=== PATIENT | female | born 1960 | race African-American/Black ===

== ENCOUNTER 2017-01-08 10:56 | Outpatient (CLI) | payer OTHER ==
[2016-01-24 15:39] VITALS: BMI 34.2
--- NOTE | 2017-01-08 11:37 | DI ---
EXAM: Three views of the left shoulder. History: Left shoulder pain. Findings: No acute fracture or dislocation. Sclerosis and cystic change within the superior lateral aspect of the humeral head. Mild narrowing of the left AC joint and left glenohumeral joint. No ra diopaque foreign bodies. Impression: 1. No acute osseous abnormality. 2. Rotator cuff disease. 3. Mild arthritis.
== END 2017-01-08 10:57 | disposition home or self-care (01) ==
LOC: RAD 10:56
PROVIDERS: ATTEND Internal Medicine
DX: M25.512 Pain in left shoulder (principal)

== ENCOUNTER 2017-01-29 10:36 | Outpatient (CLI) | payer OTHER ==
[2016-01-24 15:39] VITALS: BMI 34.2
--- NOTE | 2017-01-30 12:06 | MAMMO ---
EXAM: Digital screening mammogram with tomosynthesis HISTORY: Screening COMPARISON: 02/21/2015 FINDINGS: Digital MLO and CC views of the right and left breast were performed. Computer-aided det ection was utilized. Tomosynthesis was performed. There are scattered fibroglandular densities. Genna gical clip and bilateral breath. Scattered benign bilateral calcifications. Stable benign bilateral lymph nodes. There is no evidence for mass, asymmetry, distortion, or suspicious calcifications in either breast. IMPRESSION: 1. No evidence of malignancy in the right or left breast. 2. Annual screening mammogram is recommended in one year. BIRADS category 2, benign
== END 2017-01-29 10:37 | disposition home or self-care (01) ==
LOC: RAD 10:36
PROVIDERS: ATTEND Internal Medicine
DX: Z12.31 Encounter for screening mammogram for malignant neoplasm of breast (principal)
CPT/HCPCS: 77067

== ENCOUNTER 2017-03-19 15:30 | Outpatient (RCR) ==
[2016-01-24 15:39] VITALS: BMI 34.2
--- NOTE | 2017-02-22 14:25 | RS.OPPTDN ---
Subjective Date of Note: 02/21/17 Visit #: 6 Date of Evaluation: 02/04/17 Payer Source: MEDICARE Treatment Diagnosis: Closed nondisplaced fx of greater tuberosity of L humerus Current Subjective/complaints:: Patient says reaching is getting better and work tasks are getting easier, but is still the most difficult motion at work. She says she has to lift her arm over head ~5 times per day. She says her pain remains moderate today. Pain Assessment - Pain Description Pain Location: L shld Current Pain Intensity: moderate, just came from work - Heat/Cryotherapy Treatment: Cryotherapy (15 mins to L shoulder after therex in supine) Interventions - Exercise/Activities/Manual Therapy Exercises/Activities: Pt received PROM L shoulder for flexion/abd, short range IR/ER. elbow flex/ext/sup/pron. Continued with manual isometrics for the shoulder flex/ext/IR/ER 2 x 5. Manual isometrics for biceps/triceps 2x5. 2 1/2 # wand for bilateral shoulder flexion and forward press ups 2 x 10. 1# wrist flex/ext, elbow sup/pron, biceps/triceps and punches x 10. 5 and 7# digiflexors x 10 each. Scap retraction with red tband x 10 at EOB. Total minutes of Exercise: 32 Manual Therapy: n/a HOME EXERCISE PROGRAM: pt given written HEP with finger walking as well as pendulum ex. - Charges Total Direct Minutes: 32 Total Treatment Time: 47 Procedures billed for this date of service:: cp, ex2 Assessment: Patient tolerating increased shoulder flexion to ~165 degrees AAROM. Pain remains moderate, but demo improved strength with isometrics and control with eccentric bilateral shoulder wand exercises. Patient Education: Body/Joint mechanics, Home Exercise Program Patient demonstrates compliance with HEP?: Yes Short Term Goals Goal #1: pt with improved L shld flex AROM 100 abd 90. Goal to be met by: 02/18/17 Progress towards Goal:: Met Goal #2: pt report pain < 5/10 with activity L shld Goal to be met by: 02/18/17 Progress towards Goal:: Met Goal #3: pt able to perform grooming tasks independently with less difficulty Goal to be met by: 02/18/17 Progress towards Goal:: Progressing Prison Goals Goal #1: pt independent with HEP to allow to maintain functional gains. Goal to be met by: 02/25/17 Progress towards goal: Progressing Goal #2: pt report pain < 3/10 with activity Goal to be met by: 02/25/17 Progress towards goal: Progressing Goal #3: pt rate self >50/80 on UE functional index Goal to be met by: 02/25/17 Goal #4: pt demonstrate improved LUE shld flex 110 abd 100 AROM Goal to be met by: 02/25/17 Plan PLAN OF CARE EXPIRES ON:: 02/25/17 ORDER # VISITS AND/OR THROUGH DATE: 02/25/17 2x3 weeks PLAN: Progress Exercises Comments:: Patient could benefit from possibly continuing 2x3 more weeks to assist her with strength at work.
--- NOTE | 2017-02-28 11:01 | RS.OPPTDN ---
Subjective Date of Note: 02/27/17 Visit #: 7 Date of Evaluation: 02/04/17 Payer Source: MEDICARE Treatment Diagnosis: Closed nondisplaced fx of greater tuberosity of L humerus Current Subjective/complaints:: Patient c/o increased pain today. She denies feeling it is related to work duties this week. She says she continued to use ice at home and HEP. She is taking Tramadol for pain, which does help at work and in PT. Pain Assessment - Pain Description Pain Location: L shld Current Pain Intensity: moderate, just came from work - Heat/Cryotherapy Treatment: Cryotherapy (15 mins to L shoulder after therex in sitting) Interventions - Exercise/Activities/Manual Therapy Exercises/Activities: Pt received PROM L shoulder for flexion/abd, IR/ER. elbow flex/ext/sup/pron. Continued with manual isometrics for the shoulder flex/ext/ IR/ER 2 x 10. Manual isometrics for biceps/triceps 2x5. Green tband for shoulder pull downs and bilateral ER and L shoulder IR x 10. Increased to 3# wand for bilateral shoulder flexion and forward press ups 2 x 10. Increased to 2# interlocking machine operator ball for punches, wrist flex/ext, elbow sup/pron, x 10. 5 and 7# digiflexors x 10 each. Scap retraction progressed to green tband x 10 at EOB. Ball on the wall for clock and counter clockwise x 10. Total minutes of Exercise: 35 Manual Therapy: n/a HOME EXERCISE PROGRAM: pt given written HEP with finger walking as well as pendulum ex. - Charges Total Direct Minutes: 35 Total Treatment Time: 50 Procedures billed for this date of service:: cp, ex2 Assessment: Patient very compliant with HEP/ice. She is able to ekaterina Active flexion to 175 today with wand in sitting, abd to WFL. She remains with discomfort in all ranges, but particularly with IR/ER isometrics. Cryotherapy alleviates pain substantially after therex. Patient Education: Home Exercise Program Patient demonstrates compliance with HEP?: Yes Short Term Goals Goal #1: pt with improved L shld flex AROM 100 abd 90. Goal to be met by: 02/18/17 Progress towards Goal:: Met Goal #2: pt report pain < 5/10 with activity L shld Goal to be met by: 02/18/17 Progress towards Goal:: Met Goal #3: pt able to perform grooming tasks independently with less difficulty Goal to be met by: 02/18/17 Progress towards Goal:: Progressing Customer Service Agent Goals Goal #1: pt independent with HEP to allow to maintain functional gains. Goal to be met by: 03/18/17 Progress towards goal: Progressing Goal #2: pt report pain < 3/10 with activity Goal to be met by: 03/18/17 Progress towards goal: Progressing Goal #3: pt rate self >50/80 on UE functional index Goal to be met by: 03/18/17 Progress towards goal: Progressing Goal #4: pt demonstrate improved LUE shld flex 110 abd 100 AROM Goal to be met by: 03/18/17 Progress towards goal: Met Plan PLAN OF CARE EXPIRES ON:: 03/18/17 ORDER # VISITS AND/OR THROUGH DATE: 03/18/17 NEW CONTINUATION 2x3 weeks PLAN: We received continuation 2x3 weeks dated 02/21/17. Patient continues this week for therex to improve ROM and increase strength for ADLs and job duties. She has 2 more weeks remaining.
--- NOTE | 2017-03-04 08:48 | RS.OPPTDN ---
Subjective Date of Note: 03/01/17 Visit #: 8 Date of Evaluation: 02/04/17 Payer Source: MEDICARE Treatment Diagnosis: Closed nondisplaced fx of greater tuberosity of L humerus Current Subjective/complaints:: Patient says she has not had to do much at work today. 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 She admits she has more mobility this week when compared to last week. Pain Assessment - Pain Description Pain Location: L shld Current Pain Intensity: low, increases with end range of motion - Heat/Cryotherapy Treatment: Cryotherapy (20 mins to the L shoulder in sitting at end of session) Interventions - Exercise/Activities/Manual Therapy Exercises/Activities: Gloria begins with pulleys x 3 mins for shoulder flexion. Supine for PROM/gentle stretching of L shoulder for flexion/abd, IR/ ER. elbow flex/ext/sup/pron. Continued with manual isometrics for the shoulder flex/ext/IR/ER 2 x 10. 2# machine silk screen printer ball for biceps/triceps and punches 2x10. Green tband for shoulder pull downs and bilateral ER and L shoulder IR x 10. Continued with 3# wand for bilateral shoulder flexion and forward press ups 2 x 10. Scap retraction progressed to green tband x 10 at EOB. Ball on the wall for clock and counter clockwise x 10. Total minutes of Exercise: 35 Manual Therapy: n/a HOME EXERCISE PROGRAM: pt given written HEP with finger walking as well as pendulum ex. - Objective Findings Observations,measurements,etc.: Active shoulder flexion to - Charges Total Direct Minutes: 35 Total Treatment Time: 35 Procedures billed for this date of service:: cp, ex2 Assessment: Patient continues with new continuation order progressing L shoulder flexion to WFL all directions. She is able to ekaterina increased strengthening exercises and overhead activity with more control and less pain. She has had less work load at her job allowing her shoulder to avoid heavier tasks and improve with PT further. Patient Education: Body/Joint mechanics, Home Exercise Program, Activity Modification Patient demonstrates compliance with HEP?: Yes Short Term Goals Goal #1: pt with improved L shld flex AROM 100 abd 90. Goal to be met by: 02/18/17 Progress towards Goal:: Met Goal #2: pt report pain < 5/10 with activity L shld Goal to be met by: 02/18/17 Progress towards Goal:: Met Goal #3: pt able to perform grooming tasks independently with less difficulty Goal to be met by: 02/18/17 Progress towards Goal:: Progressing Client Account Assistant Goals Goal #1: pt independent with HEP to allow to maintain functional gains. Goal to be met by: 03/18/17 Progress towards goal: Progressing Goal #2: pt report pain < 3/10 with activity Goal to be met by: 03/18/17 Progress towards goal: Progressing Goal #3: pt rate self >50/80 on UE functional index Goal to be met by: 03/18/17 Progress towards goal: Progressing Comments: Assess next week Goal #4: pt demonstrate improved LUE shld flex 110 abd 100 AROM Goal to be met by: 03/18/17 Progress towards goal: Met Plan PLAN OF CARE EXPIRES ON:: 03/18/17 ORDER # VISITS AND/OR THROUGH DATE: 03/18/17 NEW CONTINUATION 2x3 weeks PLAN: Progress therex to improve ROM and strength to the L UE per continuation order.
--- NOTE | 2017-03-05 09:59 | RS.OPPTDN ---
Subjective Date of Note: 03/05/17 Visit #: 9 Date of Evaluation: 02/04/17 Payer Source: MEDICARE Treatment Diagnosis: Closed nondisplaced fx of greater tuberosity of L humerus Current Subjective/complaints:: Patient describes stiffness this morning in the L shoulder. She says it does seem to hurt more in the A.M. (Patient usually attends afternoons after her shift). Pain Assessment - Pain Description Pain Location: L shld Current Pain Intensity: low, increases with end range of motion - Heat/Cryotherapy Treatment: Hot Pack (15 mins to the L shoulder in supine) Interventions - Exercise/Activities/Manual Therapy Exercises/Activities: Supine for PROM/gentle stretching of L shoulder for flexion/abd, IR/ER. Continued with manual isometrics for the shoulder flex/ext/ IR/ER 2 x 10. 2# dynamometer tuner ball for biceps/triceps and punches 2x10. Green tband for shoulder pull downs and bilateral ER and L shoulder IR x 10. Continued with 3# wand for bilateral shoulder flexion and forward press ups 2 x 10. Scap retraction green tband x 10 at EOB. Ended with UBE forward and retro x 4 mins. Total minutes of Exercise: 33 Manual Therapy: n/a HOME EXERCISE PROGRAM: pt given written HEP with finger walking as well as pendulum ex. - Charges Total Direct Minutes: 33 Total Treatment Time: 48 Procedures billed for this date of service:: hp, ex2 Assessment: Patient initially with stiffness and mild guarding with PROM, after heat applied, she had improved flexibility and less pain. She demo high pain ekaterina with progressed exercises and is able to demo all ROM WFL now. Difficulty with resisted shoulder ext and eccentric contraction during 2# punches or L single arm press (supine). Patient experienced relief of L shoulder pain with UBE, but did c/o R shoulder beginning to have discomfort. Patient Education: Body/Joint mechanics, Home Exercise Program Patient demonstrates compliance with HEP?: Yes Short Term Goals Goal #1: pt with improved L shld flex AROM 100 abd 90. Goal to be met by: 02/18/17 Progress towards Goal:: Met Goal #2: pt report pain < 5/10 with activity L shld Goal to be met by: 02/18/17 Progress towards Goal:: Met Goal #3: pt able to perform grooming tasks independently with less difficulty Goal to be met by: 02/18/17 Progress towards Goal:: Progressing Hot Plate Plywood Press Feeder Goals Goal #1: pt independent with HEP to allow to maintain functional gains. Goal to be met by: 03/18/17 Progress towards goal: Progressing Goal #2: pt report pain < 3/10 with activity Goal to be met by: 03/18/17 Progress towards goal: Progressing Goal #3: pt rate self >50/80 on UE functional index Goal to be met by: 03/18/17 Progress towards goal: Progressing Goal #4: pt demonstrate improved LUE shld flex 110 abd 100 AROM Goal to be met by: 03/18/17 Progress towards goal: Met Plan PLAN OF CARE EXPIRES ON:: 03/18/17 ORDER # VISITS AND/OR THROUGH DATE: 03/18/17 NEW CONTINUATION 2x3 weeks PLAN: Progress PROM/AROM x 2 more weeks per continuation to improve flexibility and advance strengthening to L UE.
--- NOTE | 2017-03-08 09:02 | RS.OPPTDN ---
Subjective Date of Note: 03/07/17 Visit #: 10 Date of Evaluation: 02/04/17 Payer Source: MEDICARE Treatment Diagnosis: Closed nondisplaced fx of greater tuberosity of L humerus Current Subjective/complaints:: Patient says she is tired from work and has to [employer] tonight. She says her arm is sore, but not as bad as last session. - Heat/Cryotherapy Treatment: Hot Pack (over the L shoulder in supine x 15 mins), Cryotherapy ( cold pack after therex in sitting at EOB x 15) Interventions - Exercise/Activities/Manual Therapy Exercises/Activities: Supine for PROM/gentle stretching of L shoulder for flexion/abd, IR/ER. Continued with manual isometrics for the shoulder flex/ext/ IR/ER 2 x 10. 2# bariatric nurse ball for biceps/triceps and punches 2x10. Green tband for shoulder pull downs and bilateral ER and L shoulder IR x 10. Continued with 3# wand for bilateral shoulder flexion and forward press ups 2 x 10. Sitting: bilateral shoulder flexion 3# x 10. Scap retraction green tband x 10 at EOB. Ended with UBE forward and retro x 4 mins. Added shelf reaching with 2# ball x 10 reps from trunk to overhead. Total minutes of Exercise: 35 Manual Therapy: n/a HOME EXERCISE PROGRAM: pt given written HEP with finger walking as well as pendulum ex. - Charges Total Direct Minutes: 35 Total Treatment Time: 65 Procedures billed for this date of service:: hp, ex2 Assessment: Progressed overhead reaching with resistance and repetitive activity with only discomfort to the L shoulder. Improved flexibility and muscle guarding with moist heat today. Patient Education: Body/Joint mechanics, Home Exercise Program, Education of Plan of Care Patient demonstrates compliance with HEP?: Yes Short Term Goals Goal #1: pt with improved L shld flex AROM 100 abd 90. Goal to be met by: 02/18/17 Progress towards Goal:: Met Goal #2: pt report pain < 5/10 with activity L shld Goal to be met by: 02/18/17 Progress towards Goal:: Met Goal #3: pt able to perform grooming tasks independently with less difficulty Goal to be met by: 02/18/17 Progress towards Goal:: Progressing Processing Assistant Goals Goal #1: pt independent with HEP to allow to maintain functional gains. Goal to be met by: 03/18/17 Progress towards goal: Progressing Goal #2: pt report pain < 3/10 with activity Goal to be met by: 03/18/17 Progress towards goal: Progressing Goal #3: pt rate self >50/80 on UE functional index Goal to be met by: 03/18/17 Progress towards goal: Progressing Goal #4: pt demonstrate improved LUE shld flex 110 abd 100 AROM Goal to be met by: 03/18/17 Progress towards goal: Met Plan PLAN OF CARE EXPIRES ON:: 03/18/17 ORDER # VISITS AND/OR THROUGH DATE: 03/18/17 NEW CONTINUATION 2x3 weeks PLAN: Progress exercises x 1 more week to increase ROM and build strength for overhead reaching.
--- NOTE | 2017-03-12 09:11 | RS.OPPTDN ---
Subjective Date of Note: 03/11/17 Visit #: 11 Date of Evaluation: 02/04/17 Payer Source: MEDICARE Treatment Diagnosis: Closed nondisplaced fx of greater tuberosity of L humerus Current Subjective/complaints:: Patient says she had a follow up with her MD yesterday and received an injection. She reports less pain as a result and feels she is continuing to improve with motion. She says she has been working on HEP and eager to increase her exercise. Reports she just had a heating pad on her shoulder at home just before leaving for therapy. - Heat/Cryotherapy Treatment: Hot Pack (15 mins to the L shoulder in supine.) Interventions - Exercise/Activities/Manual Therapy Exercises/Activities: Supine for PROM/gentle stretching of L shoulder for flexion/abd, IR/ER. Continued with manual isometrics for the shoulder flex/ext/ IR/ER 2 x 10. 2# diet therapist ball for biceps/triceps and punches 2x10. Green tband for shoulder pull downs and bilateral ER and L shoulder IR and punches x 10. Continued with 3# wand for bilateral shoulder flexion and forward press ups 2 x 10. Sitting: bilateral shoulder flexion 3# x 10. Scap retraction and bilateral shoulder ER green tband 2 x 10 at EOB. Ended with UBE forward and retro x 4 mins. Shelf reaching with 2# ball x 10 reps from trunk to overhead. Total minutes of Exercise: 35 Manual Therapy: n/a HOME EXERCISE PROGRAM: pt given written HEP with finger walking as well as pendulum ex. - Charges Total Direct Minutes: 35 Total Treatment Time: 50 Procedures billed for this date of service:: cp, ex2 Assessment: Patient admits good report from MD follow up and received an injection. She maintains low level L shoulder pain today with increased shoulder flexion passively to 170 degrees and no muscle guarding. Active shoulder flexion to 165 today. Actively able to achieve 75% IR/ER. Patient Education: Home Exercise Program, Education of Plan of Care Patient demonstrates compliance with HEP?: Yes Short Term Goals Goal #1: pt with improved L shld flex AROM 100 abd 90. Goal to be met by: 02/18/17 Progress towards Goal:: Met Goal #2: pt report pain < 5/10 with activity L shld Goal to be met by: 02/18/17 Progress towards Goal:: Met Goal #3: pt able to perform grooming tasks independently with less difficulty Goal to be met by: 02/18/17 Progress towards Goal:: Met [employer] Goals Goal #1: pt independent with HEP to allow to maintain functional gains. Goal to be met by: 03/18/17 Progress towards goal: Progressing Goal #2: pt report pain < 3/10 with activity Goal to be met by: 03/18/17 Progress towards goal: Progressing Goal #3: pt rate self >50/80 on UE functional index Goal to be met by: 03/18/17 Progress towards goal: Progressing Goal #4: pt demonstrate improved LUE shld flex 110 abd 100 AROM Goal to be met by: 03/18/17 Progress towards goal: Met Plan PLAN OF CARE EXPIRES ON:: 03/18/17 ORDER # VISITS AND/OR THROUGH DATE: 03/18/17 NEW CONTINUATION 2x3 weeks PLAN: Patient has a continuation order from her MD as of yesterday and will bring it in at her next appt.
--- NOTE | 2017-03-19 15:27 | RS.PTSUM ---
Progress Note/Summary Date of Note: 03/07/17 Date of Evaluation: 02/04/17 Number of Visits: 10 Reporting Period for this Progress Note: 02/04/17-03/07/17 Current Complaints/Gains: pt reports increased tolerance with reaching activities and above head. Objective Measurements/Presentation: pt demonstrates AROM L shld flex 165 PROM L shld 170, abd and IR/ER WNL. G Codes: carrying and moving current CJ. carrying and moving goal CI Source of G Code Score: UE functional scale which has improved to 32/80 or 60% as well as observing current functional abilities. - Short Term Goals Goal #1: pt with improved L shld flex AROM 100 abd 90. Goal to be met by: 02/18/17 Progress towards Goal:: Met Goal #2: pt report pain < 5/10 with activity L shld Goal to be met by: 02/18/17 Progress towards Goal:: Met Goal #3: pt able to perform grooming tasks independently with less difficulty Goal to be met by: 02/18/17 Progress towards Goal:: Met - Gas Engine Operator Compressors Goals Goal #1: pt independent with HEP to allow to maintain functional gains. Goal to be met by: 04/05/17 Progress towards goal: Progressing Goal #2: pt report pain < 3/10 with activity Goal to be met by: 04/05/17 Progress towards goal: Progressing Goal #3: pt rate self >50/80 on UE functional index Goal to be met by: 04/05/17 Progress towards goal: Progressing Goal #4: pt demonstrate improved LUE shld flex 110 abd 100 AROM Goal to be met by: 04/05/17 Progress towards goal: Met - Assessment Assessment of Improvement/Progress: pt has made significant progress with ROM as well as strength and functional abilities. Summary: Patient has made progress towards goals. - Plan Plan: Continue Plan of Care Comments: 2 w 3 Frequency: 2 X week Duration: 3 weeks PLAN OF CARE EXPIRES ON:: 04/05/17 ORDER # VISITS AND/OR THROUGH DATE: 03/18/17 NEW CONTINUATION 2x3 weeks
--- NOTE | 2017-03-19 16:42 | RS.OPPTDN ---
Subjective Date of Note: 03/19/17 Visit #: 13 Date of Evaluation: 02/04/17 Payer Source: MEDICARE Treatment Diagnosis: Closed nondisplaced fx of greater tuberosity of L humerus Current Subjective/complaints:: Patient says her shoulder has been doing really well. Reports she notices "everything at work is getting easier." She is not specific with any particular task that remains difficult for her at home or at work, but remarks she is pleased with her progress so far. She continues to work on her HEP and reports using heat to the shoulder just before coming to PT today. Interventions - Exercise/Activities/Manual Therapy Exercises/Activities: Continued with PROM stretching of L shoulder for flexion/ abd, IR/ER. Continued with manual isometrics for the shoulder flex/ext/IR/ER 2 x 10. Increased to 3# dumbell for biceps/triceps and punches and wrist flex/ ext 2x10. Green tband for shoulder pull downs and bilateral ER and L shoulder IR and punches x 15 and added bilateral horizontal abd with green tband x 10. Continued with 3# wand for bilateral shoulder flexion and forward press ups 2 x 15. Sitting: bilateral shoulder flexion 3# x 10. Scap retraction and bilateral shoulder ER green tband 2 x 15 at EOB. Ended with "ball on the wall" counter and clockwise x 10. Shelf reaching with 3# wand x 10 reps from trunk to overhead. No further exercise added as patient needed to leave early with company at her home. Total minutes of Exercise: 35 Manual Therapy: n/a HOME EXERCISE PROGRAM: pt given written HEP with finger walking as well as pendulum ex. - Charges Total Direct Minutes: 35 Total Treatment Time: 35 Procedures billed for this date of service:: ex2 Assessment: Patient improving with ekaterina to stretching into all dir and active motion particularly overhead and ER now @ 80 degrees and ABD to 165 degrees actively. Progressing with strengthening and general pain level remains low. Patient Education: Home Exercise Program Patient demonstrates compliance with HEP?: Yes Short Term Goals Goal #1: pt with improved L shld flex AROM 100 abd 90. Goal to be met by: 02/18/17 Progress towards Goal:: Met Goal #2: pt report pain < 5/10 with activity L shld Goal to be met by: 02/18/17 Progress towards Goal:: Met Goal #3: pt able to perform grooming tasks independently with less difficulty Goal to be met by: 02/18/17 Progress towards Goal:: Met Half-Way Goals Goal #1: pt independent with HEP to allow to maintain functional gains. Goal to be met by: 04/05/17 Progress towards goal: Progressing Goal #2: pt report pain < 3/10 with activity Goal to be met by: 04/05/17 Progress towards goal: Progressing Goal #3: pt rate self >50/80 on UE functional index Goal to be met by: 04/05/17 Progress towards goal: Progressing Goal #4: pt demonstrate improved LUE shld flex 110 abd 100 AROM Goal to be met by: 04/05/17 Progress towards goal: Met Plan PLAN OF CARE EXPIRES ON:: 04/05/17 ORDER # VISITS AND/OR THROUGH DATE: 04/05/17 NEW CONTINUATION 2x3 weeks PLAN: Progress therex to meet LTG
--- NOTE | 2017-03-21 16:35 | RS.OPPTDN ---
Subjective Date of Note: 03/21/17 Visit #: 14 Date of Evaluation: 02/04/17 Payer Source: MEDICARE Treatment Diagnosis: Closed nondisplaced fx of greater tuberosity of L humerus Current Subjective/complaints:: Patient says her arm is getting stronger and feels she is improving greatly. She says her pain level is low and intermittent. - Heat/Cryotherapy Treatment: Cryotherapy (15 mins to the L shoulder in sitting after therex) Interventions - Exercise/Activities/Manual Therapy Exercises/Activities: Continued with PROM stretching of L shoulder for flexion/ abd, IR/ER. Continued with manual isometrics for the shoulder flex/ext/IR/ER 2 x 10. Increased to 4# dumbell for biceps/triceps and punches and wrist flex/ ext 2x10. Green tband for shoulder pull downs and bilateral ER and L shoulder IR and punches x 15 and added bilateral horizontal abd with green tband x 10. Increased to 4# wand for bilateral shoulder flexion and forward press ups 2 x 15. Sitting: bilateral shoulder flexion 3# x 10. Scap retraction and bilateral shoulder ER green tband 2 x 15 at EOB. Shelf reaching with 3# wand x 10 reps from trunk to overhead. Ended with wall slides for flexion and abd. UBE unavailable. Total minutes of Exercise: 35 Manual Therapy: n/a HOME EXERCISE PROGRAM: pt given written HEP with finger walking as well as pendulum ex. - Charges Total Direct Minutes: 35 Total Treatment Time: 50 Procedures billed for this date of service:: cp, ex2 Assessment: Patient continues to improve with progressive strengthening and ROM actively to near WNL all directions. Patient Education: Body/Joint mechanics, Home Exercise Program Patient demonstrates compliance with HEP?: Yes Short Term Goals Goal #1: pt with improved L shld flex AROM 100 abd 90. Goal to be met by: 02/18/17 Progress towards Goal:: Met Goal #2: pt report pain < 5/10 with activity L shld Goal to be met by: 02/18/17 Progress towards Goal:: Met Goal #3: pt able to perform grooming tasks independently with less difficulty Goal to be met by: 02/18/17 Progress towards Goal:: Met [facility] Goals Goal #1: pt independent with HEP to allow to maintain functional gains. Goal to be met by: 04/05/17 Progress towards goal: Met Goal #2: pt report pain < 3/10 with activity Goal to be met by: 04/05/17 Progress towards goal: Progressing Goal #3: pt rate self >50/80 on UE functional index Goal to be met by: 04/05/17 Progress towards goal: Progressing Goal #4: pt demonstrate improved LUE shld flex 110 abd 100 AROM Goal to be met by: 04/05/17 Progress towards goal: Met Plan PLAN OF CARE EXPIRES ON:: 04/05/17 ORDER # VISITS AND/OR THROUGH DATE: 04/05/17 NEW CONTINUATION 2x3 weeks PLAN: Continue for progressive strengthening and to further improve ER and ABD actively to WNL.
== END 2017-03-21 ==
PROVIDERS: ATTEND Physician Assistant
DX: M75.82 Other shoulder lesions, left shoulder (principal)

== ENCOUNTER 2017-04-02 11:00 | Outpatient (RCR) ==
[2016-01-24 15:39] VITALS: BMI 34.2
--- NOTE | 2017-03-27 08:54 | RS.OPPTDN ---
Subjective Date of Note: 03/26/17 Visit #: 15 Date of Evaluation: 02/04/17 Payer Source: MEDICARE Treatment Diagnosis: Closed nondisplaced fx of greater tuberosity of L humerus Current Subjective/complaints:: Patient says she is late because of her ride. She admits low pain level and improved mobility/strength. She says she does not have much difficulty with performing work tasks. Interventions - Exercise/Activities/Manual Therapy Exercises/Activities: Patient arrives 30 mins late. No modalities. Continued with stretching of L shoulder for flexion/abd, IR/ER. 4# dumbell for biceps/ triceps and punches and wrist flex/ext 2x10. Green tband for shoulder pull downs and bilateral ER and L shoulder IR and punches x 15 and bilateral horizontal abd with green tband x 10. 4# wand for bilateral shoulder flexion and forward press ups 2 x 15. Sitting: bilateral shoulder flexion 4# x 10. Scap retraction increased to blue tband 2 x 15 at EOB. Blue tband bilateral pull downs 2x10. Green tband for standing shoulder flexion, abd, ext x 15. Total minutes of Exercise: 32 Manual Therapy: n/a HOME EXERCISE PROGRAM: pt given written HEP with finger walking as well as pendulum ex. - Charges Timed Code Treatment Minutes: 32 Total Treatment Time: 32 Procedures billed for this date of service:: ex2 Assessment: Patient demo improved overhead strength and progressive activity regarding shoulder rotation. She is maintaining low pain level with work activities and while in the department. Patient Education: Home Exercise Program Patient demonstrates compliance with HEP?: Yes Short Term Goals Goal #1: pt with improved L shld flex AROM 100 abd 90. Goal to be met by: 02/18/17 Progress towards Goal:: Met Goal #2: pt report pain < 5/10 with activity L shld Goal to be met by: 02/18/17 Progress towards Goal:: Met Goal #3: pt able to perform grooming tasks independently with less difficulty Goal to be met by: 02/18/17 Progress towards Goal:: Met [facility] Home Goals Goal #1: pt independent with HEP to allow to maintain functional gains. Goal to be met by: 04/05/17 Progress towards goal: Met Goal #2: pt report pain < 3/10 with activity Goal to be met by: 04/05/17 Progress towards goal: Progressing Goal #3: pt rate self >50/80 on UE functional index Goal to be met by: 04/05/17 Progress towards goal: Progressing Goal #4: pt demonstrate improved LUE shld flex 110 abd 100 AROM Goal to be met by: 04/05/17 Progress towards goal: Met Plan PLAN OF CARE EXPIRES ON:: 04/05/17 ORDER # VISITS AND/OR THROUGH DATE: 04/05/17 NEW CONTINUATION 2x3 weeks PLAN: Continue x 1 more session per continuation and regarding progress with goals.
--- NOTE | 2017-03-28 16:39 | RS.OPPTDN ---
Subjective Date of Note: 03/28/17 Visit #: 16 Date of Evaluation: 02/04/17 Payer Source: MEDICARE Treatment Diagnosis: Closed nondisplaced fx of greater tuberosity of L humerus Current Subjective/complaints:: Patient says she is able to resume all necessary duties at work now. She reports she is much stronger and pleased with her lowered pain level. - Heat/Cryotherapy Treatment: Cryotherapy (15 mins to the L shoulder sitting EOB after therex) Interventions - Exercise/Activities/Manual Therapy Exercises/Activities: No modalities. Continued with stretching of L shoulder for flexion/abd, IR/ER all to WNL. 4# dumbell for biceps/triceps and punches and wrist flex/ext 2x10. Increased to blue tband for shoulder pull downs and bilateral ER and L shoulder IR and punches x 15 and bilateral horizontal abd with blue tband x 10. 4# wand for bilateral shoulder flexion and forward press ups 2 x 15. Sitting: bilateral shoulder flexion 4# x 10. Scap retraction increased to blue tband 2 x 15 at EOB. Standing: blue tband for shoulder ext, flexion x 10 reps. Total minutes of Exercise: 35 Manual Therapy: n/a HOME EXERCISE PROGRAM: pt given written HEP with finger walking as well as pendulum ex. - Charges Timed Code Treatment Minutes: 35 Total Treatment Time: 50 Procedures billed for this date of service:: cp, ex2 Patient Education: Home Exercise Program Patient demonstrates compliance with HEP?: Yes Short Term Goals Goal #1: pt with improved L shld flex AROM 100 abd 90. 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 Goal to be met by: 04/05/17 Progress towards goal: Met Goal #2: pt report pain < 3/10 with activity Goal to be met by: 04/05/17 Progress towards goal: Progressing Goal #3: pt rate self >50/80 on UE functional index Goal to be met by: 04/05/17 Progress towards goal: Progressing Goal #4: pt demonstrate improved LUE shld flex 110 abd 100 AROM Goal to be met by: 04/05/17 Progress towards goal: Met Plan PLAN OF CARE EXPIRES ON:: 04/05/17 ORDER # VISITS AND/OR THROUGH DATE: 04/05/17 NEW CONTINUATION 2x3 weeks PLAN: Continue x 1 more session for reassessment, Gcodes, and address LTG/ advance HEP.
--- NOTE | 2017-04-02 11:43 | RS.QUICKDC ---
Discharge from PT Date of Discharge: 04/02/17 Number of Visits: 16 Reason for Discharge: Patient has improved with pain, function, and strength to the L UE. She demo increased hook and eye attacher strength of her involved UE which now compares to the dominant hand. L UE measures 5/5 grossly. Increased UE Functional Index from initially 13/80 or 84% to now 64/80 or 20% impairment. No c/o with any work duties or avoidance now at her job. Patient received green and blue tbands for HEP and patient expresses high satisfaction with her progress.
== END 2017-04-21 ==
PROVIDERS: ATTEND Physician Assistant
DX: M75.82 Other shoulder lesions, left shoulder (principal)

== ENCOUNTER 2017-04-23 11:09 | Outpatient (CLI) ==
[2016-01-24 15:39] VITALS: BMI 34.2
--- NOTE | 2017-04-23 15:12 | MRI ---
EXAM: MRI left shoulder without contrast. HISTORY: Fall 3 months ago. Diagnosed incomplete rotator cuff tear. No left shoulder surgery repor kim.. TECHNIQUE: Using a local coil on a high field strength magnet multiplanar multisequence magnet reson ance imaging performed of the left shoulder without intravenous or intra-articular gadolinium contras t. . COMPARISON: Three -view plain film examination left shoulder 01/08/2017. FINDINGS: A Type I acromion. Coracoacromial ligament/arch intact with some thickening. There is ad ditionally left acromioclavicular joint degenerative arthrosis/osteoarthrosis. Prominent subacromial enthesopathy/keel spurring. Deltoid musculature normal signal intensity. Trace fluid subacromial/s ubdeltoid bursa. Muscle bulk of the rotator cuff shows fatty infiltration without acute muscle strain. Marked suprasp inatus tendinosis over the insertion and critical zone. Marked underlying remodeling along the great er tuberosity with some bone marrow edema and degenerative cyst formation . Some insertional fissuri ng/low grade partial thickness rim rent tearing. 5 mm area of partial thickness more bursal sided in trasubstance tearing. No full-thickness rotator cuff tear identified. Posterior intact infraspinatu s and teres minor tendon fibers. Anterior intact subscapularis tendon fibers. The long head of the biceps tendon shows intact fibers with tendinosis and partial thickness tearing. The left humeral head seated. Mild/moderate left glenohumeral joint osteoarthrosis. Trace left sindy ohumeral joint effusion. Overall left glenoid labrum poorly characterized on this non-arthrographic e xamination.. 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 Marked supraspinatus tendinosis. Underlying remodeling along the greater tuberosity with bone marrow edema and degenerative cyst formation. Some insertional fissuring/low grade partial thickness rim re nt tearing. 5 mm area of partial thickness more bursal sided intrasubstance tearing as well. No ful l-thickness rotator cuff tear identified. Trace fluid subacromial/subdeltoid bursa may reflect an ov erlying degree bursitis and/or be sequelae of prior shoulder injection. Correlate clinically. Mild/moderate left glenohumeral joint osteoarthrosis. Trace left glenohumeral joint effusion.
== END 2017-04-23 11:10 | disposition home or self-care (01) ==
LOC: RAD 11:09
PROVIDERS: ATTEND Physician Assistant
DX: M75.02 Adhesive capsulitis of left shoulder (principal); M75.112 Incomplete rotator cuff tear or rupture of left shoulder, not specified as traumatic; M75.82 Other shoulder lesions, left shoulder

== ENCOUNTER 2017-08-09 08:23 | Outpatient (CLI) ==
[2016-01-24 15:39] VITALS: BMI 34.2
== END 2017-08-09 08:24 | disposition short-term general hospital (02) ==
LOC: AMBL 08:23
PROVIDERS: ATTEND Internal Medicine
DX: R47.81 Slurred speech (principal); R26.89 Other abnormalities of gait and mobility; R40.2411 Glasgow coma scale score 13-15, in the field [EMT or ambulance]

== ENCOUNTER 2018-02-05 11:06 | Outpatient (CLI) ==
[2016-01-24 15:39] VITALS: BMI 34.2
--- NOTE | 2018-02-07 10:26 | MAMMO ---
EXAM: Digital screening mammogram with tomosynthesis HISTORY: Screening COMPARISON: 01/29/2017 FINDINGS: Digital MLO and CC views of the right and left breast were performed. Tomosynthesis was p erformed. Computer aided detection utilized. There are scattered fibroglandular densities. Surgical clip in the left breast. Bilateral benign calcifications. Bilateral benign lymph nodes. There is no evidence for mass, asymmetry, distortion, or suspicious calcifications in either breast. IMPRESSION: 1. No evidence of malignancy in the right or left breast. 2. Annual screening mammogram is recommended in one year. BIRADS category 2, benign
== END 2018-02-05 11:07 | disposition home or self-care (01) ==
LOC: RAD 11:06
PROVIDERS: ATTEND Internal Medicine
DX: Z12.31 Encounter for screening mammogram for malignant neoplasm of breast (principal)
CPT/HCPCS: 77067

== ENCOUNTER 2018-07-04 06:35 | Outpatient (CLI) ==
[2016-01-24 15:39] VITALS: BMI 34.2
--- NOTE | 2018-07-04 08:56 | ECHO2D ---
Date of Exam: 07/04/18 Ordering Physician: DR. KEELEY DURON Room #: OP Reason for Echo: SOB, HTN, PRE SURG CLEARANCE M-Mode Normal Adult Results LV Dimensions Normal Adult Results AoV Opening excursions >1.6 >1.6 LVEDD-base- 3.5-5.8 4.0 Ao root dimensions 2.0-3.7 2.8 LVESD-base- 3.1-4.6 L. Atrium dimensions 1.9-3.8 3.7 Post. Wall thickness 0.8-1.1 0.8 IV septum (thickness) 0.7-1.2 1.0 Post. Wall excursion 0.72-1.3 NORMAL Septal motion NORMAL Systolic motion R. Ventricular cavity 1.5-2.0 NORMAL LVEF 60% 55% Paradoxical septal wall motion NORMAL 2-D : 2-D M Mode Echocardiogram was performed using apical four chamber and left parasternal long and short axis views. Mitral, tricuspid and aortic valves appear to be normal. Contractility of the left ventricle seems to be normal, so is the cavity size. Left atrial cavity size and aortic root appear to be normal. There is no pericardial effusion. There is no thrombus noted in the left ventricular or left aortic cavity. No mitral valve prolapse noted. M-MODE: MV: NORMAL AV: NORMAL TV: NORMAL PV: CHAMBER SIZE: NORMAL WALL MOTION: NORMAL PERICARDIUM: NORMAL INTERPRETATION: 1. NORMAL 2 "D" "M" MODE ECHO MTDD
--- NOTE | 2018-07-04 09:24 | US ---
EXAM: Bilateral carotid artery Doppler History: Dizziness and stroke. Comparison: Carotid Doppler 01/24/2016 Technique: Multiple sonographic images through the bilateral internal carotid arteries were obtained . Color duplex Doppler was used to interrogate vascular flow. Findings: The right ICA peak systolic velocity is within normal limits measuring 85 cm/sec. The right ICA/cca PSV ratio is normal at 1.4. The right vertebral artery is patent and demonstrates antegrade flow. G ray scale images demonstrate mild plaque buildup within the right internal carotid artery. The left ICA peak systolic velocities within normal limits measuring 90 cm/sec. The left ICA/cca PSV ratio is normal at 1.3. Left vertebral artery is patent and demonstrates antegrade flow. Calderon scal e images demonstrate mild plaque buildup within the left internal carotid artery Impression: No significant hemodynamic stenosis of the bilateral internal carotid arteries
--- NOTE | 2018-07-07 11:14 | STRESSECHO ---
Date of Test: 07/04/18 Ordering Physician: DR. KEELEY DURON Occupation: UNEMPLOYED Reason for Exam: SOB, HTN, PRE SURG CLEARANCE Smoking History: NONE Height: 63" Weight: 200 LBS Current Medications: FLEXERIL, NOVOLIN, ASA, ULTRAM, CELEXA, CRESTOR, LISINOPRIL Resting EKG: SINUS RHYTHM/ NO ACUTE CHANGES Target Heart Rate: 139/164 S-T SEGMENT STAGE MPH/GRADE HEART RATE BPM BLOOD PRESSURE MMHG RHYTHM +/- ELEVATION DEPRESSION SYMPTOMS AT REST 75 BPM 138/78 MMHG SR X NONE 1 1.7/10% 132 BPM 160/72 MMHG SR X NONE 2 2.5/12% 3 3.4/14% 4 4.2/16% 5 5.0/18% Immediately After 150 BPM SR X SHORT OF AIR Minutes Post Exercise 5:00 80 BPM 158/88 MMHG SR X NONE Minutes Post Exercise DURATION OF EXERCISE: 3:25 MAXIMUM HEART RATE REACHED: 150 MMHG REASON FOR TERMINATION: SHORT OF BREATH 94% OXYGEN SATURATION WITH EXERCISE ON ROOM AIR METS 5.7 INTERPRETATION: 1. NO EVIDENCE OF ISCHEMIA BY ST-T WAVE 2. NO CHEST PAIN OR DISCOMFORT 3. NO ARRHYTHMIA 4. BLOOD PRESSURE RESPONSE: NORMAL NORMAL LEFT VENTRICULAR CONTRACTILITY--RESTING AND POST EXERCISE MTDD
--- NOTE | 2018-07-07 11:16 | ECHOSTRESS ---
Date of Exam: 07/04/18 Ordering Physician: DR. KEELEY DURON Reason for Echo: SOB, HTN, PRE SURG CLEARANCE, STRESS TEST --NO ISCHEMIA M-Mode Normal Adult Results LV Dimensions Normal Adult Results AoV Opening excursions >1.6 LVEDD-base- 3.5-5.8 Ao root dimensions 2.0-3.7 LVESD-base- 3.1-4.6 L. Atrium dimensions 1.9-3.8 Post. Wall thickness 0.8-1.1 IV septum (thickness) 0.7-1.2 Post. Wall excursion 0.72-1.3 Septal motion Systolic motion R. Ventricular cavity 1.5-2.0 LVEF 60% Paradoxical septal wall motion 2-D: NORMAL LEFT VENTRICULAR CONTRACTILITY--RESTING AND POST EXERCISE M-MODE: MV: AV: TV: PV: CHAMBER SIZE: WALL MOTION: NORMAL LEFT VENTRICULAR CONTRACTILITY--RESTING AND POST EXERCISE PERICARDIUM: INTERPRETATION: 1. NORMAL LEFT VENTRICULAR CONTRACTILITY--RESTING AND POST EXERCISE MTDD
== END 2018-07-04 06:36 | disposition home or self-care (01) ==
LOC: CAR 06:35
PROVIDERS: ATTEND Internal Medicine
DX: R06.02 Shortness of breath (principal); R42 Dizziness and giddiness; I10 Essential (primary) hypertension; E11.9 Type 2 diabetes mellitus without complications; Z01.810 Encounter for preprocedural cardiovascular examination; Z86.73 Personal history of transient ischemic attack (TIA), and cerebral infarction without residual deficits
CPT/HCPCS: 93005; 93010

== ENCOUNTER 2022-09-13 16:36 | Observation (INO) ==
--- NOTE | 2022-09-13 17:16 | ED.PDOC ---
General ED Provider: Dr. WARNER RUIZ MD Chief Complaint: Hypoglycemia Stated Complaint: my blood sugar was low Time Seen by Provider: 09/13/22 16:59 Information Source: Patient and EMT Primary Care Provider: KEELEY DURON MD Nursing and Triage Documentation Reviewed and Agree: Yes Does patient meet sepsis criteria?: No System Inflammatory Response Syndrome: Not Applicable Sepsis Protocol: For patient's 13 years and over: Temp is 96.8 and below OR 101 and greater Pulse >90 BPM Resp >20/minute Acutely Altered Mental Status Are patient's symptoms suggestive of a new infection, such as: -Pneumonia -Skin, Soft Tissue -Endocarditis -UTI -Bone, Joint Infection -Implantable Device -Acute Abdominal Infection -Wound Infection -Meningitis -Blood Stream Catheter Infection -Unknown Review of Systems Review Of Systems Constitutional: Reports No symptoms Neurological: Reports Other (loss of consciousness ) All Other Systems: Reviewed and Negative [facility] Medical History (Updated 09/13/22 @ 23:06 by UMM WESLEY RN) Anemia D64.9 - Anemia, unspecified (ICD-10) Diabetes E11.9 - Type 2 diabetes mellitus without complications (ICD-10) HTN (hypertension) I10 - Essential (primary) hypertension (ICD-10) Family History (Updated 09/13/22 @ 23:06 by UMM WESLEY RN) Other No known health problems Social History Smoking and tobacco status: Never smoker Alcohol intake: never Substance use type: does not use Special estevan needs: No Agree to transfusion: Yes Adopted: No Caregiver/support person: No Foster care: No Household members: family Housing: house Lives independently: Yes Number of children: 2 service: No long-term: No History of recent travel: No Do you think of yourself as: straight/heterosexual Current gender identity: female Seatbelt use: always Drives intoxicated or rides with intoxicated local hazmat driver: No Water heater temperature set < 120 degrees: Yes Working smoke detector in home: Yes Fire extinguisher in home: Yes Carbon monoxide detector in home: Yes Female Reproductive History Menstrual Hx Hysterectomy: No Hx Tubal Ligation: Yes Physical Exam Physical Exam Appearance: Reports Well-appearing Ill-appearing: None Pain Distress: None Eyes: Reports SADIE and EOMI ENT: Reports Ears normal and Nose normal Neck: Supple Respiratory: Reports Airway patent, Breath sounds clear and Breath sounds equal Cardiovascular: Reports RRR, Pulses normal and No murmur GI/: Reports Soft and Nontender Musculoskeletal: Reports Normal strength, ROM intact and No edema Skin: Reports Warm and Normal color Neurological: Reports Sensation intact and Motor intact Psychiatric: Reports Affect appropriate Critical Care Note Critical Care Note Total Critical Care Time (mins): 0 Course Course 09/14/22 04:40 09/14/22 04:40 Orders, Labs, Meds: Lab Review 09/13/22 17:50 WBC 9.59 RBC 4.45 Hgb 12.2 Hct 38.6 MCV 86.7 MCH 27.4 MCHC 31.6 L RDW Coeff of Mai 14.4 Plt Count 403 Immature Gran % (Auto) 0.2 Neut % (Auto) 86.8 H Lymph % (Auto) 7.8 L [place] % (Auto) 4.3 Eos % (Auto) 0.7 Baso % (Auto) 0.2 Neut # (Auto) 8.3 H Lymph # (Auto) 0.8 [place] # (Auto) 0.4 Eos # (Auto) 0.1 Baso # (Auto) 0.0 Immature Gran # (Auto) 0.0 Sodium 139.8 Potassium 3.96 Chloride 109.3 H Carbon Dioxide 23.2 Anion Gap 11.26 BUN 14.8 Creatinine 0.76 Estimated GFR (MDRD) 94.00 BUN/Creatinine Ratio 19.47 Glucose 78.9 Calcium 9.24 Total Bilirubin 0.49 AST 26.2 ALT 13.5 Alkaline Phosphatase 107.4 Total Protein 7.96 Albumin 4.16 Globulin 3.80 Albumin/Globulin Ratio 1.09 Orders Category Date Time Status PLACE PATIENT OBSERVATION .TO MEDSURG (MONITORED BED ADMISSION 09/13/22 21:22 Active ) ACTIVITY .Early Mobilization for VTE Prevention CARE 09/13/22 21:26 Active BLOOD GLUCOSE MONITORING (MED/SURG) Q2HR CARE 09/13/22 21:22 Active GIVE HS SNACK 2100 CARE 09/13/22 21:23 Active INTAKE & OUTPUT Q8HR CARE 09/13/22 21:27 Active TELEMETRY MONITORING TELE CARE 09/13/22 21:26 Active VITAL SIGNS Q4HR CARE 09/13/22 21:27 Active VTE PREVENTION .SCD On AM/Off PM CARE 09/13/22 21:26 Active ADA 1800 ROXANNE. DIET DIETARY 09/14/22 Breakfast Ordered HS SNACK DIETARY 09/13/22 Dinner Ordered Blood Sugar [ED ACCUCHECK ASSESSMENT] .ONCE EMERGENCY 09/13/22 17:08 Active CBC W/ AUTO DIFF Stat LAB 09/13/22 17:50 Completed CMP [COMPREHENSIVE METABOLIC PANEL] Stat LAB 09/13/22 17:50 Completed HEMOGLOBIN A1C Routine LAB 09/14/22 04:40 Completed Acetaminophen [Tylenol] Meds 09/13/22 21:22 Active 650 mg PO Q4H PRN Dextrose 5 % and 0.9 % NaCl [Dextrose 5%-Ns IV Solution Meds 09/13/22 21:22 Discontinued ] 1,000 ml IV 125 mls/hr Dextrose 50 % in Water [Dextrose 50%-Water Abboject] Meds 09/13/22 18:45 Discontinued 50 ml IVP ONCE ONE Ondansetron HCl/Pf [Zofran 4 mg/2 ml] Meds 09/13/22 21:22 Active 4 mg IVP Q8H PRN Medications Generic Name Dose Route Start Last Admin Trade Name Freq PRN Reason Stop Dose Admin Acetaminophen 650 mg 09/13/22 21:22 Acetaminophen 325 Mg Tablet PO Q4H PRN Mild Pain Ondansetron HCl 4 mg 09/13/22 21:22 Ondansetron Hcl/Pf 4 Mg/2 Ml Sdv IVP Q8H PRN Nausea / Vomiting Discontinued Medications Generic Name Dose Route Start Last Admin Trade Name Freq PRN Reason Stop Dose Admin Dextrose 50 ml 09/13/22 18:45 09/13/22 18:54 Dextrose 50 % In Water 50 Ml Disp.Syrin IVP 09/13/22 18:46 50 ml ONCE ONE Administration Dextrose/Sodium Chloride 1,000 mls @ 125 mls/hr 09/13/22 21:22 09/13/22 22:47 Dextrose 5%-Ns Iv Solution IV 09/14/22 05:21 125 mls/hr .Q8H STA Administration Vital Signs: Temp Pulse Resp BP Pulse Ox 09/13/22 20:55 98 18 154/98 H 99 09/13/22 16:39 98.2 F 92 20 163/100 H 97 62 years old male with past medical history of diabetes type 2, anemia, depression, dyslipidemia came to the ER from home for hypoglycemia. Patient was found on the side of the bed by the paramedics unconscious blood sugar was 39 on the scene to receive 1 amp of D50 blood sugar came up to 180. Patient did not eat breakfast this morning when she took her insulin. She says she was planning to eat but does not know what happened. patient received anothe D50 in ER. blood sugar 79 then 89. Patient ate a cheese burger and fries and drank some juice repeated blood sugar is 69. Patient will be admitted under observation for blood sugar monitoring.Spoke with Nate LIZ and she agreed with admission for obser vation under her services. Discharge Plan Discharge Patient Disposition: ADMITTED INPATIENT Discharge Problem: Hypoglycemia Did you review [place] SPRAY WORKER for ALL controlled substances?: Not Applicable ED Provider: WARNER RUIZ Condition: Good Physician Progress Note: []
[2022-09-13 18:01] LABS: BASOPHILS % (AUTO) 0.2 % (0.0-3.0); EOSINOPHILS # (AUTO) 0.1 K/ul (0.0-0.7); EOSINOPHILS % (AUTO) 0.7 % (0.0-7.0); HEMATOCRIT 38.6 % (37.0-47.0); HEMOGLOBIN 12.2 g/dl (12.0-16.0); IMMATURE GRANULOCYTE % (AUTO) 0.2 % (0.0-5.0); LYMPHOCYTES # (AUTO) 0.8 K/uL (0.60-3.4); LYMPHOCYTES % (AUTO) 7.8 (10.0-50.0); MEAN CORPUSCULAR HEMOGLOBIN 27.4 pg (27.0-31.0); MEAN CORPUSCULAR HGB CONC 31.6 (31.8-35.4); MEAN CORPUSCULAR VOLUME 86.7 fl (81.0-99.0); MONOCYTES # (AUTO) 0.4 K/uL (0.4-2.0); MONOCYTES % (AUTO) 4.3 (0-10); NEUTROPHILS # (AUTO) 8.3 K/ul (2.0-6.9); NEUTROPHILS % (AUTO) 86.8 % (42.2-75.2); PLATELET COUNT 403 10^3/uL (140-440); RDW COEFFICIENT OF VARIATION 14.4 % (11.6-14.8); RED BLOOD COUNT 4.45 10^6/ul (4.20-5.40); WHITE BLOOD COUNT 9.59 K/ul (4.6-10.2)
[2022-09-13 18:07] LABS: ALANINE AMINOTRANSFERASE 13.5 U/L (0-35); ALBUMIN 4.16 g/dL (3.5-5.0); ALKALINE PHOSPHATASE 107.4 U/L (53-141); ASPARTATE AMINO TRANSFERASE 26.2 U/L (14-36); BILIRUBIN,TOTAL 0.49 mg/dL (0.2-1.3); BLOOD UREA NITROGEN 14.8 mg/dL (7-17); CALCIUM 9.24 mg/dL (8.4-10.2); CARBON DIOXIDE 23.2 mmol/L (22-30.0); CHLORIDE 109.3 mmol/L (98-107); CREATININE 0.76 mg/dL (0.60-1.30); GLUCOSE 78.9 mg/dL (74-106); POTASSIUM 3.96 mmol/L (3.5-5.1); SODIUM 139.8 mmol/L (134.5-145); TOTAL PROTEIN 7.96 g/dL (6.3-8.2)
[2022-09-13] MEDS ORDERED: DEXTROSE 50%-WATER ABBOJECT IVP ONE (18:45)
[2022-09-13] MEDS ORDERED: TYLENOL PO PRN (21:22)
[2022-09-13] MEDS ORDERED: DEXTROSE 5%-NS IV SOLUTION 1,000 ML IV STA (21:22)
[2022-09-13] MEDS ORDERED: ZOFRAN 4 MG/2 ML IVP PRN (21:22)
[2022-09-13 22:54] VITALS: BMI 39.4
[2022-09-14 05:00] LABS: BASOPHILS % (AUTO) 0.4 % (0.0-3.0); EOSINOPHILS # (AUTO) 0.2 K/ul (0.0-0.7); EOSINOPHILS % (AUTO) 2.1 % (0.0-7.0); HEMATOCRIT 36.1 % (37.0-47.0); HEMOGLOBIN 11.4 g/dl (12.0-16.0); IMMATURE GRANULOCYTE % (AUTO) 0.4 % (0.0-5.0); LYMPHOCYTES # (AUTO) 1.5 K/uL (0.60-3.4); LYMPHOCYTES % (AUTO) 17.7 (10.0-50.0); MEAN CORPUSCULAR HGB CONC 31.6 (31.8-35.4); MEAN CORPUSCULAR VOLUME 88.7 fl (81.0-99.0); MONOCYTES # (AUTO) 0.6 K/uL (0.4-2.0); MONOCYTES % (AUTO) 7.5 (0-10); NEUTROPHILS # (AUTO) 5.9 K/ul (2.0-6.9); NEUTROPHILS % (AUTO) 71.9 % (42.2-75.2); PLATELET COUNT 401 10^3/uL (140-440); RDW COEFFICIENT OF VARIATION 14.6 % (11.6-14.8); RED BLOOD COUNT 4.07 10^6/ul (4.20-5.40); WHITE BLOOD COUNT 8.23 K/ul (4.6-10.2)
[2022-09-14 05:11] LABS: ALANINE AMINOTRANSFERASE 13.4 U/L (0-35); ALBUMIN 3.73 g/dL (3.5-5.0); ALKALINE PHOSPHATASE 92.7 U/L (53-141); ASPARTATE AMINO TRANSFERASE 23.6 U/L (14-36); BILIRUBIN,TOTAL 0.25 mg/dL (0.2-1.3); BLOOD UREA NITROGEN 11.8 mg/dL (7-17); CALCIUM 8.62 mg/dL (8.4-10.2); CARBON DIOXIDE 24.5 mmol/L (22-30.0); CREATININE 0.83 mg/dL (0.60-1.30); GLUCOSE 118.5 mg/dL (74-106); POTASSIUM 3.74 mmol/L (3.5-5.1); SODIUM 140.7 mmol/L (134.5-145); TOTAL PROTEIN 7.47 g/dL (6.3-8.2)
[2022-09-14 10:04] VITALS: BP 129/82; RESP 16; TEMP 98.1
--- NOTE | 2022-09-14 10:47 | PCM.SS ---
Provider Provider: HORTENSIA DIAL, [facility] Admission Date Admission Date: 09/13/22 Discharge Date Discharge Date: 09/14/22 Primary Care Physician Primary Care Physician: KEELEY DURON MD Chief Complaint Reason For Visit: Hypoglycemia History of Present Illness History of Present Illness: Admitted 09/13/22 21:35, this 62 year old AA/BLACK/F presented to the ER after caregiver called ambulance due to patient being unresponsive. Patient's blood glucose was found to be in the 30s. In the ER she was given dextrose and blood sugar mildly improved. She was then given a meal and blood sugar continued to drop. Patient has a history of type 2 diabetes and takes 70/30 twice a day. Patient states that she does not like to check her blood sugar so she will dose herself with insulin without knowing what her level is. States she does not remember giving herself insulin yesterday. Also reports that she spoke with her PCP about prescribing her a Dexcom and she does not know when she is supposed to get it. She denies any complaints at this time. Denies any fever, chills, nausea, vomiting, diarrhea, chest pain, or shortness of breath. [facility] Medical History (Updated 09/14/22 @ 10:36 by HORTENSIA DIAL) Anemia D64.9 - Anemia, unspecified (ICD-10) Chronic kidney disease (CKD) stage G3a/A1, moderately decreased glomerular filtration rate (GFR) between 45-59 mL/min/1.73 square meter and albuminuria creatinine ratio less than 30 mg/g N18.31 - Chronic kidney disease, stage 3a (ICD-10) COPD (chronic obstructive pulmonary disease) J44.9 - Chronic obstructive pulmonary disease, unspecified (ICD-10) CVA (cerebral vascular accident) I63.9 - Cerebral infarction, unspecified (ICD-10) Diabetes E11.9 - Type 2 diabetes mellitus without complications (ICD-10) Dyslipidemia E78.5 - Hyperlipidemia, unspecified (ICD-10) HTN (hypertension) I10 - Essential (primary) hypertension (ICD-10) Surgical History (Updated 09/14/22 @ 10:36 by HORTENSIA DIAL) 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-10) S/P cholecystectomy Z90.49 - Acquired absence of other specified parts of digestive tract (ICD- 10) Family History Other No known health problems Social History Smoking and tobacco status: Never smoker Alcohol intake: never Substance use type: does not use Special estevan needs: No Agree to transfusion: Yes Adopted: No Caregiver/support person: No Foster care: No Household members: family Housing: house Lives independently: Yes Number of children: 2 service: No correction: No History of recent travel: No Do you think of yourself as: straight/heterosexual Current gender identity: female Seatbelt use: always Drives intoxicated or rides with intoxicated buggy driver: No Water heater temperature set < 120 degrees: Yes Working smoke detector in home: Yes Fire extinguisher in home: Yes Carbon monoxide detector in home: Yes Medications Mecications: Medications at Discharge (Home Meds & RX) cyclobenzaprine 10 mg tablet 1 tab PO DAILY PRN Muscle spasms in back 01/24/16 rosuvastatin 40 mg tablet (Crestor) 40 mg PO QAM 01/24/16 ferrous sulfate 325 mg (65 mg iron) tablet 325 mg PO BID #60 tabs 06/26/22 citalopram 40 mg tablet (Celexa) 40 mg PO QAM 08/17/22 fluticasone fur. 100 mcg-umeclid 62.5 mcg-vilant 25 mcg inhalat.powder (Trelegy Ellipta) 1 inh inhalation QDAY 08/17/22 gabapentin 300 mg capsule 300 mg PO .BEDTIME 08/17/22 insulin human U-100 NPH-regulr 70-30 mix 100 unit/mL subcutaneous susp (Humulin 70/30 U-100 Insulin) 35 unit subcut BIDAC 08/17/22 semaglutide 1 mg/dose (4 mg/3 mL) subcutaneous pen injector (Ozempic) 1 mg (0.75 mL) subcut QWEEK #3 mL 08/17/22 blood-glucose meter,continuous (Dexcom G6 Machine Heel Seat Fitter) #1 ea 09/10/22 blood-glucose sensor (Dexcom G7 Sensor device) #1 ea 09/10/22 Allergies Allergies Allergy/AdvReac Type Severity Reaction Status Date / Time Penicillins Allergy Intermediate Rash Verified 08/17/22 09:41 Review of Systems Constitutional: Reports No symptoms Head: Reports Normocephalic Eyes: Reports No symptoms Ears: Reports No symptoms Nose: Reports No symptoms Mouth: Reports No symptoms Throat: Reports No symptoms Cardiovascular: Reports No symptoms Respiratory: Reports No symptoms Gastrointestinal: Reports No symptoms Genitourinary: Reports No Symptoms Musculoskeletal: Reports No symptoms Endocrine: Reports No symptoms Hematology: Reports No symptoms Immunology: Reports No symptoms Neurological: Reports Weakness Psychiatric: Reports No symptoms Physical Examination Appearance: Positive Well-appearing, Well-nourished, No Apparent Distress, Alert and Oriented x3 and Obese Head: Positive Normocephalic Eyes: Positive SADIE ENT: Positive Nares Normal and Oropharynx Normal Neck: Positive Supple, Non-Tender, No Masses, No Lynphadenopathy and Trachea Midline Heart: Positive RRR and No Murmurs Respiratory: Positive Airway patent, Breath Sounds Clear, Bilaterally, Breath Sounds Equal and Respirations Nonlabored GI/: Positive Soft, Nontender, Bowel sounds normal, No Distention, No masses and No Organomegaly Extremities: Positive Pedal Pulses Palpable Bilaterally Neurological: Positive Cranial nerves intact, Normal Gait, Recent Memory Intact, Remote Memory Intact, Sensation Intact, Motor Intact, Reflexes Intact, Alert and Oriented Psychiatric: Positive Normal Judgement, Normal Insight, Affect Appropriate and Mood Appropriate Vital Signs (Last 4 Hours) Vital Signs Last 4 Hours: Vital Signs: Last 4 Hours 09/14/22 07:00 09/14/22 08:00 09/14/22 10:00 Temperature 98.1 F Temperature Source Oral Pulse Rate 95 Respiratory Rate 18 16 Blood Pressure 129/82 Blood Pressure Mean 97 Blood Pressure Location Left Arm Blood Pressure Position Supine O2 Sat by Pulse Oximetry 99 Oxygen Delivery Method Room Air Room Air Telemetry Type Remote Telemetry Telemetry Monitoring Continues Telemetry Heart Rate 106 H EKG MD Interval 0.12 EKG QRS Interval 0.09 Telemetry Strip Reading SINUS TACH Labs This Visit Labs This Visit: Labs This Visit 09/13/22 09/14/22 17:50 04:40 WBC 9.59 8.23 RBC 4.45 4.07 L Hgb 12.2 11.4 L Hct 38.6 36.1 L MCV 86.7 88.7 MCH 27.4 28.0 MCHC 31.6 L 31.6 L RDW Coeff of Mai 14.4 14.6 Plt Count 403 401 Immature Gran % (Auto) 0.2 0.4 Neut % (Auto) 86.8 H 71.9 Lymph % (Auto) 7.8 L 17.7 [place] % (Auto) 4.3 7.5 Eos % (Auto) 0.7 2.1 Baso % (Auto) 0.2 0.4 Neut # (Auto) 8.3 H 5.9 Lymph # (Auto) 0.8 1.5 [place] # (Auto) 0.4 0.6 Eos # (Auto) 0.1 0.2 Baso # (Auto) 0.0 0.0 Immature Gran # (Auto) 0.0 0.0 Sodium 139.8 140.7 Potassium 3.96 3.74 Chloride 109.3 H 110.0 H Carbon Dioxide 23.2 24.5 Anion Gap 11.26 9.94 BUN 14.8 11.8 Creatinine 0.76 0.83 Estimated GFR (MDRD) 94.00 85.00 BUN/Creatinine Ratio 19.47 14.21 Glucose 78.9 118.5 H Hemoglobin A1c 7.17 H Calcium 9.24 8.62 Total Bilirubin 0.49 0.25 AST 26.2 23.6 ALT 13.5 13.4 Alkaline Phosphatase 107.4 92.7 Total Protein 7.96 7.47 Albumin 4.16 3.73 Globulin 3.80 3.74 Albumin/Globulin Ratio 1.09 0.99 Review Review Statement: I have independently reviewed and interpreted the labs/EKGs/imaging that were ordered by the ER provider. I have reviewed all outside records that are available currently in our EMR including imaging/notes/labs from previous visits. Plan Reccomendations/Plan: 1. Hypoglycemia - accuchecks Q2H, received D5NS throughout the night, ADA diet, holding insulin at this time, decreasing NPH dosing to 30 units in am and 20 units in pm, reaching out to pharmacy to see if dexcom is there for patient to pickup 2. Hypertension - chronic, stable, continue home medications 3. Hyperlipidemia - chronic, continue home medications 4. CKD - stable, monitor Review With Patient Reviewed with Patient and Family: Patient and family have been counseled on condition and care plan and have no immediate questions. I have personally discussed and reviewed the patient's visit/current labs/imaging/decision making with Dr. Grecia Duron, my supervising attending. Total number of minutes spent with patient 85 min. More than 50% of the time spent with this patient was devoted to counseling and coordination of care. Time of Admission:09/13/22 21:35 Time of Discharge: 09/14/22 1320 Discharge Plan Discharge Discharge Orders: Discharge Patient (ONCE); Ordered 09/14/22 Ordered By: PABLO MEHTA Activity Restrictions/Additional Instructions: Check your blood sugar prior to taking your insulin. If you do not eat, do not take your insulin. If you feel dizzy, shaking and sweating check your blood sugar immediately if below 70 eat or drink something such as orange juice or peanut butter. Follow-up with PCP next week. Decrease insulin dose to 30 units in am and 20 units in pm YOU HAVE A FOLLOW UP APPOINTMENT WITH DR. DURON'S OFFICE ON SaturdaySeptember AT 1:20. SHOULD YOU HAVE ANY QUESTIONS OR NEED TO RESCHEDULE, YOU CAN CONTACT THEIR OFFICE AT [phone]. Instructions: Hypoglycemia in a Person with Diabetes (DC) Patient Disposition: HOME SELF-CARE Prescriptions: Continued ferrous sulfate 325 mg (65 mg iron) tablet 325 mg PO BID Qty: 60 2RF (DME) Dexcom G7 Sensor Device See Rx Instructions .ROUTE Qty: 1 5RF Rx Instructions: As directed (DME) Dexcom G7 Machine Heel Seat Fitter Misc See Rx Instructions .ROUTE Qty: 1 0RF Rx Instructions: As directed cyclobenzaprine 10 MG tablet 1 tab PO DAILY PRN (Reason: Muscle spasms in back) rosuvastatin [Crestor] 40 MG tablet 40 mg PO QAM Humulin 70/30 U-100 Insulin 100 unit/mL (70-30) suspension 35 unit subcut BIDAC Rx Instructions: inject 35 units under the skin every morning and 25 units under the skin every evening citalopram [Celexa] 40 mg tablet 40 mg PO QAM gabapentin 300 mg capsule 300 mg PO .BEDTIME Trelegy Ellipta 100-62.5-25 mcg blister with device 1 inh inhalation QDAY Ozempic 1 mg/dose (4 mg/3 mL) pen injector 1 mg subcut QWEEK Qty: 3 2RF Did you review [place] CRITICAL CARE UNIT MANAGER for ALL controlled substances?: No Discussed opioids are addictive and Narcan is available by prescription or from pharmacy.: No Condition: Good
== END 2022-09-14 14:10 | disposition home or self-care (01) ==
LOC: MEDSURG B 16:36 → ED 16:36 → MEDSURG B 22:41
PROVIDERS: ADMIT Nurse Practitioner Family; ATTEND Nurse Practitioner Family
DX: I12.9 Hypertensive chronic kidney disease with stage 1 through stage 4 chronic kidney disease, or unspecified chronic kidney disease; E16.2 Hypoglycemia, unspecified; F32.A Depression, unspecified; Z79.84 Long term (current) use of oral hypoglycemic drugs; E11.649 Type 2 diabetes mellitus with hypoglycemia without coma; D64.9 Anemia, unspecified; N18.9 Chronic kidney disease, unspecified; Z90.49 Acquired absence of other specified parts of digestive tract; Z79.899 Other long term (current) drug therapy; E78.5 Hyperlipidemia, unspecified; Z51.81 Encounter for therapeutic drug level monitoring; R40.20 Unspecified coma; Z79.4 Long term (current) use of insulin; Z97.0 Presence of artificial eye

== ENCOUNTER 2022-10-05 10:49 | Inpatient (IN) ==
[2022-10-05] MEDS ORDERED: SODIUM CHLORIDE 1,000 ML IV STA ×2 (11:01→12:08)
--- NOTE | 2022-10-05 11:01 | ED.PDOC ---
General ED Provider: Dr. UMM COLLADO MD Chief Complaint: Non-specific Complaint Stated Complaint: "my blood sugar is high". Patient difficult to obtain a history from as she is somewhat obtunded. She does answer questions but very slowly. Uncertain of reliability. States that she has not taken her medication in a couple of days. Reports she is having trouble with her blood sugar. Does not answer the question about vomiting or diarrhea. She is wearing a hospital bracelet from another facility, but does not answer if she was recently hospitalized somewhere else. Apparently calling out because she has not been eating or drinking for the past couple of days. She has not been getting up and moving around her house. Time Seen by Provider: 10/05/22 10:51 Information Source: Patient and EMT Exam Limitations: Clinical condition and Altered mental status Primary Care Provider: KEELEY DURON MD Nursing and Triage Documentation Reviewed and Agree: Yes Does patient meet sepsis criteria?: Yes If yes, has appropriate treatment been initiated?: Yes System Inflammatory Response Syndrome: Pulse >90 BPM and Acutely Altered Mental Status Sepsis Protocol: For patient's 13 years and over: Temp is 96.8 and below OR 101 and greater Pulse >90 BPM Resp >20/minute Acutely Altered Mental Status Are patient's symptoms suggestive of a new infection, such as: -Pneumonia -Skin, Soft Tissue -Endocarditis -UTI -Bone, Joint Infection -Implantable Device -Acute Abdominal Infection -Wound Infection -Meningitis -Blood Stream Catheter Infection -Unknown Endocrine Complaint Exam Diabetic Complication Complaint/Exam Onset/Duration: 2 days ago Symptoms Are: Still present Timing: Constant Initial Severity: Severe Character: Confused and Lethargic Related History: Reports Insulin requiring Cardiac Risk Factors: Reports DM CVA Risk Factors: Reports DM Review of Systems Review Of Systems Constitutional: Reports Loss of appetite Cardiac: Denies Chest pain GI: Denies Diarrhea or Vomiting : Denies Dysuria All Other Systems: Reviewed and Negative [facility] Medical History Anemia D64.9 - Anemia, unspecified (ICD-10) Chronic kidney disease (CKD) stage G3a/A1, moderately decreased glomerular filtration rate (GFR) between 45-59 mL/min/1.73 square meter and albuminuria creatinine ratio less than 30 mg/g N18.31 - Chronic kidney disease, stage 3a (ICD-10) COPD (chronic obstructive pulmonary disease) J44.9 - Chronic obstructive pulmonary disease, unspecified (ICD-10) Diabetes E11.9 - Type 2 diabetes mellitus without complications (ICD-10) Dyslipidemia E78.5 - Hyperlipidemia, unspecified (ICD-10) HTN (hypertension) I10 - Essential (primary) hypertension (ICD-10) Family History Other No known health problems Social History Smoking and tobacco status: Never smoker Alcohol intake: never Substance use type: does not use Special estevan needs: No Agree to transfusion: Yes Adopted: No Caregiver/support person: No Foster care: No Household members: family Housing: house Lives independently: Yes Number of children: 2 service: No long term: No History of recent travel: No Do you think of yourself as: straight/heterosexual Current gender identity: female Seatbelt use: always Drives intoxicated or rides with intoxicated shag truck driver: No Water heater temperature set < 120 degrees: Yes Working smoke detector in home: Yes Fire extinguisher in home: Yes Carbon monoxide detector in home: Yes Surgical History 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-10) S/P cholecystectomy Z90.49 - Acquired absence of other specified parts of digestive tract (ICD- 10) Female Reproductive History Menstrual Hx Hysterectomy: No Hx Tubal Ligation: Yes (1987) Physical Exam Physical Exam Appearance: Reports Ill-appearing Ill-appearing: Moderate Pain Distress: None Eyes: Reports SADIE and EOMI ENT: Denies Oropharynx normal Neck: Supple Respiratory: Reports Airway patent and Breath sounds clear Cardiovascular: Reports Tachycardia GI/: Reports Soft and Nontender Musculoskeletal: Reports ROM intact, No edema and No calf tenderness Skin: Reports Warm, Dry and Normal color Neurological: Reports Alert and Alert to verbal Psychiatric: Reports Mood appropriate Interpretation EKG Interpretation EKG Interpretation By: ED Physician Time of EKG #1: 11:25 Rate: Tachy Rhythm: Sinus Ectopy: None [place]: NL ST Segment: Normal Interpretation: Unremarkable EKG, rate 109, ordered and interpreted by me EKG Comparison: No significant changes Critical Care Note Critical Care Note Total Critical Care Time (mins): 32 Comments: 32 minutes critical care time spent in [id number] evaluation of the patient. Time also included ordering and interpreting laboratory and radiographic data. Patient with significant electrolyte metabolic disturbances requiring intervention including IV fluids. After discussion with hospitalist team we will defer insulin administration to their team after adequate hydration. Patient at risk for worsening mental status and severe electrolyte disturbances with fluid replacement and insulin therapy. Required close monitoring and frequent reassessment. Course Course 10/05/22 11:31 10/05/22 11:31 Orders, Labs, Meds: Lab Review 10/05/22 10/05/22 10:56 11:31 WBC 14.02 H RBC 4.42 Hgb 12.2 Hct 42.2 MCV 95.5 MCH 27.6 MCHC 28.9 L RDW Coeff of Mai 15.6 H Plt Count 533 H Immature Gran % (Auto) 0.4 Neut % (Auto) 88.5 H Lymph % (Auto) 6.6 L [place] % (Auto) 4.2 Eos % (Auto) 0.1 Baso % (Auto) 0.2 Neut # (Auto) 12.4 H Lymph # (Auto) 0.9 [place] # (Auto) 0.6 Eos # (Auto) 0.0 Baso # (Auto) 0.0 Immature Gran # (Auto) 0.1 Hypochromasia 1+ Anisocytosis 1+ Macrocytosis 1+ Puncture Site [employer] Excess 4.0 H O2 Saturation 95.7 ABG pH 7.42 ABG pCO2 44.0 ABG pO2 78.0 L ABG HCO3 28.5 H ABG Total CO2 29.9 H Tony Test Pos Hemoglobin 1.5 Oxyhemoglobin 93.4 L Carboxyhemoglobin 2.1 H Total Hemoglobin 12.9 Sodium 145.4 H Potassium 4.77 Chloride 101.2 Carbon Dioxide 30.0 Anion Gap 18.97 BUN 40.9 H Creatinine 1.49 H Estimated GFR (MDRD) 43.00 BUN/Creatinine Ratio 27.44 Glucose 1106.1 H* Lactic Acid 1.07 Calcium 9.33 Total Bilirubin 0.52 AST 23.3 ALT 23.7 Alkaline Phosphatase 204.9 H Troponin I < 0.012 Total Protein 8.36 H Albumin 4.15 Globulin 4.21 Albumin/Globulin Ratio 0.98 Procalcitonin 0.52 H Orders Category Date Time Status ADMIT PATIENT INPATIENT .TO MEDSURG (MONITORED BED) ADMISSION 10/05/22 12:12 Active ABG DRAW REQUEST Stat CARDIO 10/05/22 10:52 Completed EKG-(ED ONLY) Stat CARDIO 10/05/22 10:52 Completed TELEMETRY MONITORING TELE CARE 10/05/22 12:13 Active ED IV/MEDIPORT/POWERPORT .ONCE EMERGENCY 10/05/22 10:52 Active ABG COOX Stat LAB 10/05/22 10:56 Completed BLOOD CULTURE (ED ONLY) Stat LAB 10/05/22 11:33 Received C-REACTIVE PROTEIN Stat LAB 10/05/22 11:31 Received CBC W/ AUTO DIFF Stat LAB 10/05/22 11:31 Completed CMP [COMPREHENSIVE METABOLIC PANEL] Stat LAB 10/05/22 11:31 Completed LACTIC ACID Stat LAB 10/05/22 11:31 Completed PROCALCITONIN Stat LAB 10/05/22 11:31 Completed RBC MORPHOLOGY Stat LAB 10/05/22 11:31 Completed TROPONIN I Stat LAB 10/05/22 11:31 Completed UA [URINALYSIS C & S IF INDICATED] Stat LAB 10/05/22 10:52 Uncollected 0.9 % Sodium Chloride [Saline Flush] Meds 10/05/22 10:52 Active 1 syr IVF PRN PRN Sodium Chloride 0.9% [Sodium Chloride] 1,000 ml Meds 10/05/22 11:01 Discontinued IV BOLUS Sodium Chloride 0.9% [Sodium Chloride] 1,000 ml Meds 10/05/22 12:08 Active IV BOLUS CHEST, 1V AP ONLY Stat RADS 10/05/22 10:[address] HEAD W/O CONTRAST Stat RADS 10/05/22 10:52 Ordered Medications Generic Name Dose Route Start Last Admin Trade Name Freq PRN Reason Stop Dose Admin Sodium Chloride 1,000 mls @ 1,000 mls/hr 10/05/22 12:08 Sodium Chloride IV 10/05/22 13:07 BOLUS STA Sodium Chloride 1 syr 10/05/22 10:52 0.9% Sodium Chloride 10 Ml Disp.Syrin IVF PRN PRN To flush IV Discontinued Medications Generic Name Dose Route Start Last Admin Trade Name Freq PRN Reason Stop Dose Admin Sodium Chloride 1,000 mls @ 1,000 mls/hr 10/05/22 11:01 10/05/22 12:06 Sodium Chloride IV 10/05/22 12:00 1,000 mls/hr BOLUS STA Administration Vital Signs: Temp Pulse Resp BP Pulse Ox 10/05/22 11:01 97.9 F 109 H 16 129/76 99 Discharge Plan Discharge Patient Disposition: ADMITTED INPATIENT Discharge Problem: Hyperosmolar hyperglycemic state (HHS) Prescriptions: No Action ferrous sulfate 325 mg (65 mg iron) tablet 325 mg PO BID Qty: 60 2RF (DME) Dexcom G7 Sensor Device See Rx Instructions .ROUTE Qty: 1 5RF Rx Instructions: As directed (DME) Dexcom G7 Pharmacy Billing Adjudicator Misc See Rx Instructions .ROUTE Qty: 1 0RF Rx Instructions: As directed Trelegy Ellipta 100-62.5-25 mcg blister with device 1 inh inhalation QDAY Qty: 28 5RF cyclobenzaprine 10 MG tablet 1 tab PO DAILY PRN (Reason: Muscle spasms in back) rosuvastatin [Crestor] 40 MG tablet 40 mg PO QAM citalopram [Celexa] 40 mg tablet 40 mg PO QAM Humulin 70/30 U-100 Insulin 100 unit/mL (70-30) suspension 35 unit subcut BIDAC Rx Instructions: inject 30 units under the skin every morning and 20 units under the skin every evening gabapentin 300 mg capsule 300 mg PO .BEDTIME Ozempic 1 mg/dose (4 mg/3 mL) pen injector 1 mg subcut QWEEK Qty: 3 2RF timolol 0.5 % drops 1 drp BOTHEYES BID Did you review [place] INVENTORY CHECKER for ALL controlled substances?: Not Applicable ED Provider: UMM COLLADO Physician Progress Note: 12:20 PM. Decision to admit the patient to the hospital was made. Case discussed with hospitalist team and they will accept her. Patient was given 2 L of normal saline in the emergency department. Insulin deferred to the hosp italist team for initiation. Patient made aware of these findings and understands. She is alert and understanding the severity of her illness at this time. She does seem frustrated as she was just admitted 3 weeks ago for hypoglycemia. I do have concern that she has a difficult social situation at home that continues to land her in this situation. Would recommend a social security assessor consult prior to discharge home.
[2022-10-05 11:30] LABS: ABG O2 HGB 93.4 % (95-100); ABG PH 7.42 (7.35-7.45); COHb 2.1 (0.5-1.5); HCO3 28.5 (21-28); MetHb 1.5 (0-1.5); TCO2 29.9 (19-24); sO2 95.7 % (94-98); tHb 12.9 g/dl (11.7-17.4)
[2022-10-05 11:33] LABS: BASOPHILS % (AUTO) 0.2 % (0.0-3.0); EOSINOPHILS % (AUTO) 0.1 % (0.0-7.0); HEMATOCRIT 42.2 % (37.0-47.0); HEMOGLOBIN 12.2 g/dl (12.0-16.0); IMMATURE GRANULOCYTE # (AUTO) 0.1 (0.0-1.0); IMMATURE GRANULOCYTE % (AUTO) 0.4 % (0.0-5.0); LYMPHOCYTES # (AUTO) 0.9 K/uL (0.60-3.4); LYMPHOCYTES % (AUTO) 6.6 (10.0-50.0); MEAN CORPUSCULAR HEMOGLOBIN 27.6 pg (27.0-31.0); MEAN CORPUSCULAR HGB CONC 28.9 (31.8-35.4); MEAN CORPUSCULAR VOLUME 95.5 fl (81.0-99.0); MONOCYTES # (AUTO) 0.6 K/uL (0.4-2.0); MONOCYTES % (AUTO) 4.2 (0-10); NEUTROPHILS # (AUTO) 12.4 K/ul (2.0-6.9); NEUTROPHILS % (AUTO) 88.5 % (42.2-75.2); PLATELET COUNT 533 10^3/uL (140-440); RDW COEFFICIENT OF VARIATION 15.6 % (11.6-14.8); RED BLOOD COUNT 4.42 10^6/ul (4.20-5.40); WHITE BLOOD COUNT 14.02 K/ul (4.6-10.2)
[2022-10-05 11:50] LABS: ALANINE AMINOTRANSFERASE 23.7 U/L (0-35); ALBUMIN 4.15 g/dL (3.5-5.0); ALKALINE PHOSPHATASE 204.9 U/L (53-141); ASPARTATE AMINO TRANSFERASE 23.3 U/L (14-36); BILIRUBIN,TOTAL 0.52 mg/dL (0.2-1.3); BLOOD UREA NITROGEN 40.9 mg/dL (7-17); CALCIUM 9.33 mg/dL (8.4-10.2); CHLORIDE 101.2 mmol/L (98-107); CREATININE 1.49 mg/dL (0.60-1.30); POTASSIUM 4.77 mmol/L (3.5-5.1); SODIUM 145.4 mmol/L (134.5-145); TOTAL PROTEIN 8.36 g/dL (6.3-8.2)
[2022-10-05 11:58] LABS: ANISOCYTOSIS 1+ (NOT PRESENT); HYPOCHROMASIA 1+ (NOT PRESENT)
[2022-10-05 12:05] LABS: GLUCOSE 1106.1 mg/dL (74-106); TROPONIN I < 0.012 ng/ml (0.0000-0.120)
[2022-10-05] MEDS ORDERED: LACTATED RINGERS 1,000 ML IV STA (12:41)
[2022-10-05] MEDS ORDERED: TYLENOL PO PRN (12:41)
[2022-10-05] MEDS ORDERED: MYXREDLIN 100 UNIT/100 ML BAG 100 UNIT/100 ML PLAST..BAG IV SCH ×2 (13:00→18:00)
[2022-10-05 13:09] LABS: BILIRUBIN,URINE Negative (NEGATIVE); CLARITY,URINE Clear (CLEAR); COLOR,URINE Yellow (YELLOW); KETONES,URINE 1+ (NEGATIVE); LEUKOCYTE ESTERASE ,URINE Negative (NEGATIVE); NITRITE,URINE Negative (NEGATIVE); PROTEIN,URINE Negative (NEGATIVE); URINE, BLOOD 1+ (NEGATIVE); UROBILINOGEN,URINE 0.2 (0.2)
[2022-10-05 13:21] LABS: GLUCOSE, URINE (UA) 3+ (NEGATIVE)
[2022-10-05 13:22] LABS: BACTERIA,URINE 4+ (NOT PRESENT); TRANSITIONAL EPI CELLS,URINE 0-2 (NOT PRESENT); URINE RBC, MICROSCOPIC 20-30 (0-2)
[2022-10-05 13:23] LABS: YEAST,URINE TRACE (NOT PRESENT)
[2022-10-05] MEDS ORDERED: HUMULIN R SUBCUT ONE (13:27)
[2022-10-05] MEDS ORDERED: SODIUM CHLORIDE 1,000 ML IV SCH (13:30)
--- NOTE | 2022-10-05 13:47 | DI ---
EXAM: CHEST RADIOGRAPH TECHNIQUE: Single frontal chest radiograph. HISTORY: Altered mental status COMPARISON: 01/24/2016 FINDINGS: The lungs are clear. The heart size is normal. Scoliosis IMPRESSION: 1. No acute disease.
--- NOTE | 2022-10-05 13:54 | CT ---
EXAM: CT HEAD WITHOUT CONTRAST TECHNIQUE: Noncontrast CT of the head with multiple reformats. HISTORY: Altered mental status COMPARISON: 01/24/2016. FINDINGS: Ventricular size is normal. There is generalized atrophy with white matter attenuation changes likely secondary to chronic small vessel disease. Calderon-white matter interfaces are preserved with no eviden ce of acute infarct. No evidence of intracranial hemorrhage. No midline shift or mass effect. No e ctopia. Paranasal sinuses and mastoid air cells are clear. Prosthetic globe left orbit. Normal rig ht orbit. The calvarium is intact. IMPRESSION: 1. Atrophy and white matter attenuation changes compatible with chronic small vessel ischemia. No ac aravind findings. All CT scans are performed using dose optimization techniques as appropriate to the performed exam an d includes at least one of the following: Automated exposure control, adjustment of the mA and/or kV according to size, and the use of iterative reconstruction technique. All CT scans are performed using dose optimization techniques as appropriate to the performed exam an d include at least one of the following: Automated exposure control, adjustment of the mA and/or kV according t o size, and the use of iterative reconstruction technique.
--- NOTE | 2022-10-05 14:03 | PCM ---
Date of Service Date Seen by Provider: 10/05/22 Time Seen by Provider: 14:10 Admit Day/Time Admission Date: 10/05/22 Admission Time: 12:12 Reason for Admission Chief Complaint: HYPERGLYCEMIA Hospital Provider Hospital Provider: EDIN SCHNEIDER PA-C, [facility] Primary Care Physician Primary Care Physician: KEELEY FRANCO MD History of Present Illness History of Present Illness: Patient is a 62-year-old female from home with past medical history of diabetes type 2, anemia, hypertension, chronic kidney disease, CVA who presented to the ER with elevated blood sugars. Patient was obtunded and unable to provide a full history. Patient had a recent hospitalization for hypoglycemia. Per that visit she was not checking her sugars prior to administering her insulin. In the ER she was found to have glucose over 1000. Bicarb normal. She was given 2 L of fluid. There was a delay in starting an insulin drip due to her IV being blown and the BRAZING MACHINE OPERATOR HELPER having to come out to get a line established. She was given 10 units subq during this time. White blood cell count was 14 and Procal was 0.52. Chest x-ray was negative. CT head without negative. UA was negative for nitrites or leukocytes but did have some white blood cells and 4+ bacteria. She was admitted to SCU. On my evaluation patient is oriented to person and place. She has difficulty recalling the time. She is able to answer questions otherwise appropriately but is slow to respond. She states that she has been out of her insulin for at least the last 2 to 3 days. She denies any chest pain or shortness of breath. Denies any dysuria. Case Discussed With Case Discussed With: Patient's case was discussed with the ER Physicians, Dr. Yan. [facility] Medical History Anemia D64.9 - Anemia, unspecified (ICD-10) Chronic kidney disease (CKD) stage G3a/A1, moderately decreased glomerular filtration rate (GFR) between 45-59 mL/min/1.73 square meter and albuminuria creatinine ratio less than 30 mg/g N18.31 - Chronic kidney disease, stage 3a (ICD-10) COPD (chronic obstructive pulmonary disease) J44.9 - Chronic obstructive pulmonary disease, unspecified (ICD-10) Diabetes E11.9 - Type 2 diabetes mellitus without complications (ICD-10) Dyslipidemia E78.5 - Hyperlipidemia, unspecified (ICD-10) HTN (hypertension) I10 - Essential (primary) hypertension (ICD-10) Surgical History 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-10) S/P cholecystectomy Z90.49 - Acquired absence of other specified parts of digestive tract (ICD- 10) Family History Other No known health problems Social History Smoking and tobacco status: Never smoker Alcohol intake: never Substance use type: does not use Special estevan needs: No Agree to transfusion: Yes Adopted: No Caregiver/support person: No Foster care: No Household members: family Housing: house Lives independently: Yes Number of children: 2 service: No CHCF: No History of recent travel: No Do you think of yourself as: straight/heterosexual Current gender identity: female Seatbelt use: always Drives intoxicated or rides with intoxicated hazardous materials tanker driver: No Water heater temperature set < 120 degrees: Yes Working smoke detector in home: Yes Fire extinguisher in home: Yes Carbon monoxide detector in home: Yes Allergies Allergies Allergy/AdvReac Type Severity Reaction Status Date / Time Penicillins Allergy Intermediate Rash Verified 09/25/22 13:55 Current Medications Home Medications cyclobenzaprine 10 mg tablet 1 tab PO DAILY PRN Muscle spasms in back 01/24/16 [History Confirmed 10/05/22 Last Taken 01/15/16 08:00] rosuvastatin 40 mg tablet (Crestor) 40 mg PO QAM 01/24/16 [History Confirmed 10/05/22 Last Taken 01/23/16 08:00] ferrous sulfate 325 mg (65 mg iron) tablet 325 mg PO BID #60 tabs 06/26/22 [Rx Confirmed 10/05/22 Last Taken Unknown] citalopram 40 mg tablet (Celexa) 40 mg PO QAM 08/17/22 [History Confirmed 10/05/22 Last Taken Unknown] gabapentin 300 mg capsule 300 mg PO .BEDTIME 08/17/22 [History Confirmed 10/05/22 Last Taken Unknown] semaglutide 1 mg/dose (4 mg/3 mL) subcutaneous pen injector (Ozempic) 1 mg (0.75 mL) subcut QWEEK #3 mL 08/17/22 [Rx Confirmed 10/05/22 Last Taken Unknown] blood-glucose sensor (Dexcom G7 Sensor device) #1 ea 09/10/22 [Rx Confirmed 10/05/22 Last Taken Unknown] blood-glucose meter,continuous (Dexcom G7 Configuration Management Specialist) #1 ea 09/14/22 [Rx Confirmed 10/05/22 Last Taken Unknown] fluticasone fur. 100 mcg-umeclid 62.5 mcg-vilant 25 mcg inhalat.powder (Trelegy Ellipta) 1 inh inhalation QDAY #28 ea 09/18/22 [Rx Confirmed 10/05/22 Last Taken Unknown] insulin human U-100 NPH-regulr 70-30 mix 100 unit/mL subcutaneous susp (Humulin 70/30 U-100 Insulin) 35 unit subcut BIDAC 09/25/22 [History Confirmed 10/05/22 Last Taken Unknown] timolol 0.5 % eye drops 1 drp BOTHEYES BID 09/25/22 [History Confirmed 10/05/22 Last Taken Unknown] Home Acetaminophen (Acetaminophen 325 Mg Tablet) 650 mg PO Q4H PRN PRN Reason: Mild Pain Enoxaparin Sodium (Enoxaparin Sodium 40 Mg/0.4 Ml Syr) 40 mg SUBCUT DAILY CHARLIE Fluconazole (Fluconazole 150 Mg Tablet) 150 mg PO DAILY CHARLIE INSULIN REGULAR IN 0.9 % NACL (Myxredlin 100 Unit/100 Ml Bag) 100 unit in 100 mls @ 9.77 mls/hr IV TITRATION CHARLIE; Protocol Potassium Chloride/Sodium Chloride (Sodium Chloride 0.45%-Kcl 20 Meq) 1,000 mls @ 250 mls/hr IV .Q4H CHARLIE CEFTRIAXONE/D5W 1 GM PREMIX (Rocephin 1 Gm/50 Ml D5w) 1 gm in 50 mls @ 75 mls/hr IV DAILY CHARLIE Stop: 10/08/22 14:14 Sodium Chloride (0.9% Sodium Chloride 10 Ml Disp.Syrin) 1 syr IVF PRN PRN PRN Reason: To flush IV Discontinued Medications Sodium Chloride (Sodium Chloride) 1,000 mls @ 1,000 mls/hr IV BOLUS STA Stop: 10/05/22 12:00 Last Admin: 10/05/22 12:06 Dose: 1,000 mls/hr Sodium Chloride (Sodium Chloride) 1,000 mls @ 1,000 mls/hr IV BOLUS STA Stop: 10/05/22 13:07 Lactated Ringer's (Lactated Ringers) 1,000 mls @ 250 mls/hr IV .Q4H STA Stop: 10/05/22 16:40 Insulin Human Regular (Insulin Regular, Human 100 Unit/Ml (3ml) Vial) 10 unit SUBCUT ONCE ONE Stop: 10/05/22 13:28 Last Admin: 10/05/22 13:33 Dose: 10 unit Review of Systems Constitutional: Reports Fatigue and Weakness Head: Reports Normocephalic and Atraumatic Eyes: Denies Vision Changes Ears: Denies Pain or Drainage Nose: Denies Post Nasal Drip or Congestion Throat: Denies Sore Throat or Difficulty Swallowing Cardiovascular: Denies Chest pain, Chest Pressure or Edema Respiratory: Denies Cough or Shortness of air Gastrointestinal: Denies Nausea, Vomiting, Diarrhea or Abdominal pain Genitourinary: Denies Dysuria or Frequency Dermatologic: Reports Rashes Neurological: Reports Weakness; Denies Headache or Dizziness Physical examination Most Recent Vital Signs: Most Recent Vital Signs Temperature 97.9 F 10/05/22 11:01 Temperature Source Infrared 10/05/22 11:01 Pulse Rate 109 H 10/05/22 11:01 Respiratory Rate 16 10/05/22 11:01 Blood Pressure 129/76 10/05/22 11:01 O2 Sat by Pulse Oximetry 99 10/05/22 11:01 Height 5 ft 3 in 10/05/22 11:01 Weight 215 lb 6.266 oz 10/05/22 11:01 Telemetry Heart Rate 96 09/14/22 13:00 Appearance: Positive Ill-Appearing and Other (Oriented to person and place. ) Skin: Positive Rashes (Significant yeast rash in groin and skin folds of lower abd. ), [place] and Warm HEENT: Positive Normocephalic and Atraumatic; Negative Oral Mucous Moist Neck: Positive Supple and Midline Trachea Chest/Lungs: Positive Symmetrical With Equal Breath Sounds and Clear to Auscultation Bilaterally; Negative Rales, Rhonci or Wheezes Heart: Positive Tachycardia GI/: Positive Soft, Nontender and Bowel Sounds Normal Extremities: Negative Edema Neurological: Positive Cranial Nerves Intact, Oriented (to person and place. ) and Other (Lethargic, slow to respond. ) Labs This Visit Labs This Visit: Labs This Visit 10/05/22 10/05/22 10/05/22 10:56 11:31 12:34 WBC 14.02 H RBC 4.42 Hgb 12.2 Hct 42.2 MCV 95.5 MCH 27.6 MCHC 28.9 L RDW Coeff of Mai 15.6 H Plt Count 533 H Immature Gran % (Auto) 0.4 Neut % (Auto) 88.5 H Lymph % (Auto) 6.6 L [place] % (Auto) 4.2 Eos % (Auto) 0.1 Baso % (Auto) 0.2 Neut # (Auto) 12.4 H Lymph # (Auto) 0.9 [place] # (Auto) 0.6 Eos # (Auto) 0.0 Baso # (Auto) 0.0 Immature Gran # (Auto) 0.1 Hypochromasia 1+ Anisocytosis 1+ Macrocytosis 1+ Puncture Site [place] Excess 4.0 H O2 Saturation 95.7 ABG pH 7.42 ABG pCO2 44.0 ABG pO2 78.0 L ABG HCO3 28.5 H ABG Total CO2 29.9 H Tony Test Pos Hemoglobin 1.5 Oxyhemoglobin 93.4 L Carboxyhemoglobin 2.1 H Total Hemoglobin 12.9 Sodium 145.4 H Potassium 4.77 Chloride 101.2 Carbon Dioxide 30.0 Anion Gap 18.97 BUN 40.9 H Creatinine 1.49 H Estimated GFR (MDRD) 43.00 BUN/Creatinine Ratio 27.44 Glucose 1106.1 H* Lactic Acid 1.07 Calcium 9.33 Total Bilirubin 0.52 AST 23.3 ALT 23.7 Alkaline Phosphatase 204.9 H Troponin I < 0.012 Total Protein 8.36 H Albumin 4.15 Globulin 4.21 Albumin/Globulin Ratio 0.98 Procalcitonin 0.52 H Urine Color Yellow Urine Clarity Clear Urine pH 5.0 Ur Specific [place] <=1.005 Urine Protein Negative Urine Glucose (UA) 3+ H Urine Ketones 1+ H Urine Blood 1+ H Urine Nitrite Negative Urine Bilirubin Negative Urine Urobilinogen 0.2 Ur Leukocyte Esterase Negative Urine Microscopic RBC 20-30 Urine Microscopic WBC 10-20 Ur Squamous Epith Cells 2-5 Ur Transition Epith Cell 0-2 Urine Bacteria 4+ Urine Yeast Trace Imaging Imaging: EXAM: CT HEAD WITHOUT CONTRAST TECHNIQUE: Noncontrast CT of the head with multiple reformats. HISTORY: Altered mental status COMPARISON: 01/24/2016. FINDINGS: Ventricular size is normal. There is generalized atrophy with white matter attenuation changes likely secondary to chronic small vessel disease. Calderon-white matter interfaces are preserved with no evidence of acute infarct. No evidence of intracranial hemorrhage. No midline shift or mass effect. No ectopia. Paranasal sinuses and mastoid air cells are clear. Prosthetic globe left orbit. Normal right orbit. The calvarium is intact. IMPRESSION: 1. Atrophy and white matter attenuation changes compatible with chronic small vessel ischemia. No acute findings. EXAM: CHEST RADIOGRAPH TECHNIQUE: Single frontal chest radiograph. HISTORY: Altered mental status COMPARISON: 01/24/2016 FINDINGS: The lungs are clear. The heart size is normal. Scoliosis IMPRESSION: 1. No acute disease. Review Statement Review Statement: I have independently reviewed and interpreted the labs/EKGs/imaging that were ordered by the ER provider. I have reviewed all outside records that are available currently in our EMR including imaging/notes/labs from previous visits. Plan Plan: A&P: 1. HHS with altered mental status - NPO. Insulin drip. 2L of fluids in ER. Start 1/2NS + 20 k+ at 250 ml/hr. Repeat BMP 4 hours after insulin drip starts. Accuchecks q1hrs. Hold home meds. 2. Acute metabolic encephalopathy in setting of HHS - Plan as above. CT head negative. 3. Hypernatremia, acute - Corrected Na of 161. Plan as above. 1/2NS ordered. BMP q4hrs. 4. UTI, suspect - WBC and 4+ bacteria noted in urine. Start rocephin daily. 5. Diabetes, insulin dependent - Plan as above, hold home meds. A1c 7.1 in 09/11. 6. Depression - Continue home citalopram. 7. Candidiasis of skin in setting of elevated glucose - Fluconazole daily, will reevaluate need daily. DVT Prophylaxis: Lovenox Time Spent: Greater than 80 minutes spent with patient, 50% of the time spent wi th this patient was devoted to counseling and coordination of care. Advanced Care Plannin minutes spent discussing advance care planning. FULL CODE Admit to: Inpatient/SCU. Discussed Plan of Care with Dr. Grecia Franco. Medications Medication Orders: Medications Ordered Category Date Time Status 0.9 % Sodium Chloride [Saline Flush] Meds 10/05/22 10:52 Active 1 syr IVF PRN PRN Acetaminophen [Tylenol] Meds 10/05/22 12:41 Active 650 mg PO Q4H PRN Enoxaparin Sodium [Lovenox] Meds 10/06/22 09:00 Active 40 mg SUBCUT DAILY Insulin Regular in 0.9 % NaCl [Myxredlin 100 Unit/100 Meds 10/05/22 13:00 Active ml Bag] 100 unit in 100 ml IV TITRATION Potassium Chloride-0.45% NaCl [Sodium Chloride 0.45%- Meds 10/05/22 14:00 Active KCl 20 Meq] 1,000 ml IV 250 mls/hr
[2022-10-05] MEDS: SODIUM CHLORIDE 0.45%-KCL 20 MEQ 1,000 ML IV SCH ×2 (14:38→18:49)
[2022-10-05 15:06] LABS: BLOOD UREA NITROGEN 44.3 mg/dL (7-17); CALCIUM 8.87 mg/dL (8.4-10.2); CARBON DIOXIDE 27.7 mmol/L (22-30.0); CHLORIDE 105.8 mmol/L (98-107); CREATININE 1.25 mg/dL (0.60-1.30); POTASSIUM 4.7 mmol/L (3.5-5.1); SODIUM 148.1 mmol/L (134.5-145)
[2022-10-05 15:30] LABS: GLUCOSE 945.9 mg/dL (74-106)
[2022-10-05 18:47] VITALS: BMI 35.8
[2022-10-05 20:12] LABS: BLOOD UREA NITROGEN 42.8 mg/dL (7-17); CALCIUM 9.46 mg/dL (8.4-10.2); CARBON DIOXIDE 31.9 mmol/L (22-30.0); CREATININE 1.84 mg/dL (0.60-1.30); POTASSIUM 3.94 mmol/L (3.5-5.1); SODIUM 153.6 mmol/L (134.5-145)
[2022-10-05] MEDS ORDERED: HUMULIN 70-30 SUBCUT ONE (21:11)
[2022-10-05] MEDS: ROCEPHIN 1 GM/50 ML D5W 1 GM/50 ML BAG IV SCH (21:55)
[2022-10-05] MEDS: SODIUM CHLORIDE 1,000 ML IV SCH (21:56)
[2022-10-05] MEDS: DIFLUCAN PO SCH (21:57)
[2022-10-06] MEDS: SODIUM CHLORIDE 1,000 ML IV SCH ×5 (02:30→22:13)
[2022-10-06 06:06] LABS: ALANINE AMINOTRANSFERASE 16.5 U/L (0-35); ALBUMIN 3.34 g/dL (3.5-5.0); ALKALINE PHOSPHATASE 132.6 U/L (53-141); ASPARTATE AMINO TRANSFERASE 23.4 U/L (14-36); BILIRUBIN,TOTAL 0.43 mg/dL (0.2-1.3); BLOOD UREA NITROGEN 42.1 mg/dL (7-17); CALCIUM 8.26 mg/dL (8.4-10.2); CARBON DIOXIDE 27.2 mmol/L (22-30.0); CHLORIDE 111.7 mmol/L (98-107); CREATININE 1.69 mg/dL (0.60-1.30); GLUCOSE 295.6 mg/dL (74-106); POTASSIUM 4.05 mmol/L (3.5-5.1); SODIUM 144.5 mmol/L (134.5-145); TOTAL PROTEIN 7.32 g/dL (6.3-8.2)
[2022-10-06 07:26] LABS: BASOPHILS % (AUTO) 0.3 % (0.0-3.0); EOSINOPHILS # (AUTO) 0.2 K/ul (0.0-0.7); EOSINOPHILS % (AUTO) 1.2 % (0.0-7.0); HEMATOCRIT 40.5 % (37.0-47.0); HEMOGLOBIN 11.9 g/dl (12.0-16.0); IMMATURE GRANULOCYTE % (AUTO) 0.3 % (0.0-5.0); LYMPHOCYTES # (AUTO) 1.9 K/uL (0.60-3.4); LYMPHOCYTES % (AUTO) 11.9 (10.0-50.0); MEAN CORPUSCULAR HEMOGLOBIN 27.4 pg (27.0-31.0); MEAN CORPUSCULAR HGB CONC 29.4 (31.8-35.4); MEAN CORPUSCULAR VOLUME 93.3 fl (81.0-99.0); MONOCYTES # (AUTO) 0.6 K/uL (0.4-2.0); MONOCYTES % (AUTO) 3.8 (0-10); NEUTROPHILS # (AUTO) 12.9 K/ul (2.0-6.9); NEUTROPHILS % (AUTO) 82.5 % (42.2-75.2); PLATELET COUNT 496 10^3/uL (140-440); RDW COEFFICIENT OF VARIATION 15.8 % (11.6-14.8); RED BLOOD COUNT 4.34 10^6/ul (4.20-5.40); WHITE BLOOD COUNT 15.65 K/ul (4.6-10.2)
[2022-10-06] MEDS: LOVENOX SUBCUT SCH (08:01)
[2022-10-06] MEDS: ROCEPHIN 1 GM/50 ML D5W 1 GM/50 ML BAG IV SCH (08:01)
[2022-10-06] MEDS: DIFLUCAN PO SCH (08:03)
[2022-10-06] MEDS ORDERED: HUMULIN N SUBCUT SCH (09:00)
[2022-10-06] MEDS: HUMULIN 70-30 SUBCUT SCH (09:25)
[2022-10-06] MEDS ORDERED: NON-FORMULARY MEDICATION (Fluticasone-Umeclidin-Vilanter [Trelegy Ellipta] 100-62.5-25 mcg IH SCH (10:00)
[2022-10-06] MEDS ORDERED: NEURONTIN PO SCH ×2 (10:00→21:00)
--- NOTE | 2022-10-06 10:05 | PCM.PROG ---
Date/Time Seen Date Seen by Provider: 10/06/22 Time Seen by Provider: 08:50 Provider Provider: [facility] Chief Complaint Chief Complaint: HYPERGLYCEMIA Subjective Subjective: Patient doing better today. More alert. She is oriented. She states she has been taking her medications. This story seems to change. Son was present yesterday saying she has not been taking her medications appropriately. Discussed with her concerns of her social/living situation regarding her diabetes. She was hospitalized for glucose in 30s and then 1100. Objective Appearance: Positive Ill-Appearing Chest/Lungs: Positive Symmetrical With Equal Breath Sounds and Clear to Auscultation Bilaterally; Negative Rales, Rhonci or Wheezes Heart: Positive RRR GI/: Positive Soft, Nontender and Bowel Sounds Normal Musculoskeletal: Positive Other (+generalized weakness ) Neurological: Positive Cranial Nerves Intact and Alert Additional Findings: SKIN: Significant yeast infection of groin and suprapubic area. Vital Signs Vital Signs: Vital Signs: Last 24 Hours 10/05/22 11:01 10/05/22 14:00 10/05/22 14:10 Temperature 97.9 F 98.2 F 98.2 F Temperature Source Infrared Oral Oral Pulse Rate 109 H 112 H 112 H Respiratory Rate 16 16 16 Blood Pressure 129/76 159/90 H Blood Pressure Mean 113 Blood Pressure Right Arm 159/90 Blood Pressure Location Right Arm Blood Pressure Position Supine Supine O2 Sat by Pulse Oximetry 99 97 96 Oxygen Delivery Method Room Air Room Air Height 5 ft 3 in 5 ft 3 in Weight 215 lb 6.266 oz 202 lb 6.4 oz Telemetry Type Telemetry Monitoring Telemetry Heart Rate Telemetry SPO2 EKG OR Interval EKG QRS Interval Telemetry Strip Reading 10/05/22 13:00 10/05/22 14:10 10/05/22 18:00 Temperature 98 F Temperature Source Oral Pulse Rate 109 H Respiratory Rate 14 Blood Pressure 140/79 Blood Pressure Mean 99 Blood Pressure Right Arm Blood Pressure Location Right Arm Blood Pressure Position Sitting O2 Sat by Pulse Oximetry 99 Oxygen Delivery Method Room Air Room Air Height Weight Telemetry Type Bedside Monitor Telemetry Monitoring Started Telemetry Heart Rate 114 H Telemetry SPO2 96 EKG OR Interval 0.12 EKG QRS Interval 0.08 Telemetry Strip Reading Sinus Tachycardia 10/05/22 21:00 10/05/22 19:00 10/05/22 20:00 Temperature Temperature Source Pulse Rate 105 H Respiratory Rate 18 19 Blood Pressure 101/57 L Blood Pressure Mean 71 Blood Pressure Right Arm Blood Pressure Location Right Arm Blood Pressure Position Supine O2 Sat by Pulse Oximetry 98 Oxygen Delivery Method Room Air Room Air Height Weight Telemetry Type Telemetry Monitoring Continues Telemetry Heart Rate 110 H Telemetry SPO2 98 EKG OR Interval 0.12 EKG QRS Interval 0.[address] 10/05/22 22:00 10/06/22 02:00 10/06/22 06:00 Temperature 97.6 F 97.9 F Temperature Source Temporal Artery Scan Temporal Artery Scan Pulse Rate 104 H 99 100 Respiratory Rate 14 16 16 Blood Pressure 108/58 L 134/61 117/75 Blood Pressure Mean 74 85 89 Blood Pressure Right Arm Blood Pressure Location Right Arm Right Arm Right Arm Blood Pressure Position Supine Supine Supine O2 Sat by Pulse Oximetry 97 95 99 Oxygen Delivery Method Room Air Room Air Room Air Height Weight Telemetry Type Telemetry Monitoring Telemetry Heart Rate Telemetry SPO2 EKG OR Interval EKG QRS Interval Telemetry Strip Reading 10/05/22 22:52 10/06/22 00:00 10/06/22 01:00 Temperature Temperature Source Pulse Rate 102 H 98 Respiratory Rate 16 16 Blood Pressure 129/67 134/62 Blood Pressure Mean 87 86 Blood Pressure Right Arm Blood Pressure Location Right Arm Right Arm Blood Pressure Position Supine Supine O2 Sat by Pulse Oximetry 99 98 Oxygen Delivery Method Room Air Room Air Height Weight Telemetry Type Bedside Monitor Telemetry Monitoring Continues Telemetry Heart Rate 98 Telemetry SPO2 97 EKG OR Interval 0.09 L EKG QRS Interval 0.04 L Telemetry Strip Reading SR 10/06/22 04:00 10/05/22 21:44 10/06/22 07:00 Temperature Temperature Source Pulse Rate 97 Respiratory Rate 14 Blood Pressure 111/51 L Blood Pressure Mean 71 Blood Pressure Right Arm Blood Pressure Location Right Arm Blood Pressure Position Supine O2 Sat by Pulse Oximetry 100 Oxygen Delivery Method Room Air Height Weight Telemetry Type Bedside Monitor Telemetry Monitoring Continues Telemetry Heart Rate 151 H 103 H Telemetry SPO2 96 EKG OR Interval 0.12 0.14 EKG QRS Interval 0.08 0.06 Telemetry Strip Reading SVT SINUS TACH 10/06/22 08:00 10/06/22 08:00 10/05/22 10:52 Temperature Temperature Source Pulse Rate 105 H Respiratory Rate 16 12 Blood Pressure 170/76 H Blood Pressure Mean 107 Blood Pressure Right Arm Blood Pressure Location Left Arm Blood Pressure Position Supine O2 Sat by Pulse Oximetry 98 Oxygen Delivery Method Room Air Room Air Height Weight 185 lb Telemetry Type Telemetry Monitoring Telemetry Heart Rate Telemetry SPO2 EKG OR Interval EKG QRS Interval Telemetry Strip Reading Lab Results Lab Results: Lab Results: Last 24 Hours 10/06/22 10/06/22 10/05/22 07:20 05:45 19:50 WBC 15.65 H RBC 4.34 Hgb 11.9 L Hct 40.5 MCV 93.3 MCH 27.4 MCHC 29.4 L RDW Coeff of Mai 15.8 H Plt Count 496 H Immature Gran % (Auto) 0.3 Neut % (Auto) 82.5 H Lymph % (Auto) 11.9 [place] % (Auto) 3.8 Eos % (Auto) 1.2 Baso % (Auto) 0.3 Neut # (Auto) 12.9 H Lymph # (Auto) 1.9 [place] # (Auto) 0.6 Eos # (Auto) 0.2 Baso # (Auto) 0.0 Immature Gran # (Auto) 0.0 Hypochromasia Anisocytosis Macrocytosis Puncture Site Base Excess O2 Saturation ABG pH ABG pCO2 ABG pO2 ABG HCO3 ABG Total CO2 Tony Test Hemoglobin Oxyhemoglobin Carboxyhemoglobin Total Hemoglobin Sodium 144.5 153.6 H Potassium 4.05 3.94 Chloride 111.7 H 112.0 H Carbon Dioxide 27.2 31.9 H Anion Gap 9.65 13.64 BUN 42.1 H 42.8 H Creatinine 1.69 H 1.84 H D Estimated GFR (MDRD) 37.00 34.00 BUN/Creatinine Ratio 24.91 23.26 Glucose 295.6 H D 440.0 H D Lactic Acid Calcium 8.26 L 9.46 Total Bilirubin 0.43 AST 23.4 ALT 16.5 Alkaline Phosphatase 132.6 D Troponin I C-Reactive Prot, Quant Total Protein 7.32 Albumin 3.34 L Globulin 3.98 Albumin/Globulin Ratio 0.83 Procalcitonin 0.56 H Urine Color Urine Clarity Urine pH Ur Specific Capulin Urine Protein Urine Glucose (UA) Urine Ketones Urine Blood Urine Nitrite Urine Bilirubin Urine Urobilinogen Ur Leukocyte Esterase Urine Microscopic RBC Urine Microscopic WBC Ur Squamous Epith Cells Ur Transition Epith Cell Urine Bacteria Urine Yeast 10/05/22 10/05/22 10/05/22 15:00 12:34 11:31 WBC 14.02 H RBC 4.42 Hgb 12.2 Hct 42.2 MCV 95.5 MCH 27.6 MCHC 28.9 L RDW Coeff of Mai 15.6 H Plt Count 533 H Immature Gran % (Auto) 0.4 Neut % (Auto) 88.5 H Lymph % (Auto) 6.6 L [place] % (Auto) 4.2 Eos % (Auto) 0.1 Baso % (Auto) 0.2 Neut # (Auto) 12.4 H Lymph # (Auto) 0.9 [place] # (Auto) 0.6 Eos # (Auto) 0.0 Baso # (Auto) 0.0 Immature Gran # (Auto) 0.1 Hypochromasia 1+ Anisocytosis 1+ Macrocytosis 1+ Puncture Site Base Excess O2 Saturation ABG pH ABG pCO2 ABG pO2 ABG HCO3 ABG Total CO2 Tony Test Hemoglobin Oxyhemoglobin Carboxyhemoglobin Total Hemoglobin Sodium 148.1 H 145.4 H Potassium 4.70 4.77 Chloride 105.8 101.2 Carbon Dioxide 27.7 30.0 Anion Gap 19.30 18.97 BUN 44.3 H 40.9 H Creatinine 1.25 1.49 H Estimated GFR (MDRD) 53.00 43.00 BUN/Creatinine Ratio 35.44 27.44 Glucose 945.9 H* D 1106.1 H* Lactic Acid 1.07 Calcium 8.87 9.33 Total Bilirubin 0.52 AST 23.3 ALT 23.7 Alkaline Phosphatase 204.9 H Troponin I < 0.012 C-Reactive Prot, Quant 50 H Total Protein 8.36 H Albumin 4.15 Globulin 4.21 Albumin/Globulin Ratio 0.98 Procalcitonin 0.52 H Urine Color Yellow Urine Clarity Clear Urine pH 5.0 Ur Specific Capulin <=1.005 Urine Protein Negative Urine Glucose (UA) 3+ H Urine Ketones 1+ H Urine Blood 1+ H Urine Nitrite Negative Urine Bilirubin Negative Urine Urobilinogen 0.2 Ur Leukocyte Esterase Negative Urine Microscopic RBC 20-30 Urine Microscopic WBC 10-20 Ur Squamous Epith Cells 2-5 Ur Transition Epith Cell 0-2 Urine Bacteria 4+ Urine Yeast Trace 10/05/22 10:56 WBC RBC Hgb Hct MCV MCH MCHC RDW Coeff of Mai Plt Count Immature Gran % (Auto) Neut % (Auto) Lymph % (Auto) [place] % (Auto) Eos % (Auto) Baso % (Auto) Neut # (Auto) Lymph # (Auto) [place] # (Auto) Eos # (Auto) Baso # (Auto) Immature Gran # (Auto) Hypochromasia Anisocytosis Macrocytosis Puncture Site [place] [employer] Excess 4.0 H O2 Saturation 95.7 ABG pH 7.42 ABG pCO2 44.0 ABG pO2 78.0 L ABG HCO3 28.5 H ABG Total CO2 29.9 H Tony Test Pos Hemoglobin 1.5 Oxyhemoglobin 93.4 L Carboxyhemoglobin 2.1 H Total Hemoglobin 12.9 Sodium Potassium Chloride Carbon Dioxide Anion Gap BUN Creatinine Estimated GFR (MDRD) BUN/Creatinine Ratio Glucose Lactic Acid Calcium Total Bilirubin AST ALT Alkaline Phosphatase Troponin I C-Reactive Prot, Quant Total Protein Albumin Globulin Albumin/Globulin Ratio Procalcitonin Urine Color Urine Clarity Urine pH Ur Specific Capulin Urine Protein Urine Glucose (UA) Urine Ketones Urine Blood Urine Nitrite Urine Bilirubin Urine Urobilinogen Ur Leukocyte Esterase Urine Microscopic RBC Urine Microscopic WBC Ur Squamous Epith Cells Ur Transition Epith Cell Urine Bacteria Urine Yeast Additional Comments Additional Comments: I have independently reviewed and interpreted the labs/EKGs/imaging ordered during this hospital stay. I have reviewed outside records that are available in our EMR that pertain to medical stay including imaging/notes/labs from previous visits. Active Medications Active Medications: Medications Generic Name Dose Route Start Last Admin Trade Name Freq PRN Reason Stop Dose Admin Acetaminophen 650 mg 10/05/22 12:41 Acetaminophen 325 Mg Tablet PO Q4H PRN Mild Pain Citalopram Hydrobromide 40 mg 10/06/22 10:00 Citalopram Hydrobromide 20 Mg Tablet PO DAILY CHARLIE Enoxaparin Sodium 40 mg 10/06/22 09:00 10/06/22 08:01 Enoxaparin Sodium 40 Mg/0.4 Ml Syr SUBCUT 40 mg DAILY CHARLIE Administration Fluconazole 150 mg 10/05/22 14:30 10/06/22 08:03 Fluconazole 150 Mg Tablet PO 150 mg DAILY CHARLIE Administration Gabapentin 300 mg 10/06/22 10:00 Gabapentin 300 Mg Capsule PO .BEDTIME CHARLIE CEFTRIAXONE/D5W 1 GM PREMIX 1 gm in 50 mls @ 75 mls/hr 10/05/22 14:15 10/06/22 08:01 Rocephin 1 Gm/50 Ml D5w IV 10/08/22 14:14 75 mls/hr DAILY CHARLIE Administration Sodium Chloride 1,000 mls @ 250 mls/hr 10/05/22 21:30 10/06/22 09:42 Sodium Chloride IV 250 mls/hr .Q4H CHARLIE Administration Insulin Human Isoph/Insulin Regular 30 unit 10/06/22 09:00 10/06/22 09:25 Insulin Nph Hum/Reg Insulin Hm 100 Unit/Ml (3 Ml) Vial SUBCUT 30 unit DAILY CHARLIE Administration Insulin Human Isoph/Insulin Regular 20 unit 10/06/22 21:00 Insulin Nph Hum/Reg Insulin Hm 100 Unit/Ml (3 Ml) Vial SUBCUT BEDTIME CHARLIE Non-Formulary Medication 325 mg 10/06/22 10:15 Ferrous Sulfate PO BID CHARLIE Non-Formulary Medication 1 drop 10/06/22 10:15 Timolol OP BID CHARLIE Non-Formulary Medication 1 inh 10/06/22 10:00 [id number] [Trelegy Ellipta] IH QDAY CHARLIE Rosuvastatin Calcium 40 mg 10/07/22 09:00 Rosuvastatin Calcium 10 Mg Tablet PO QAM CHARLIE Sodium Chloride 1 syr 10/05/22 10:52 0.9% Sodium Chloride 10 Ml Disp.Syrin IVF PRN PRN To flush IV Plan Plan: 1. HHS with altered mental status - Resolved. Insulin drip stopped last night. Transitioning to her home NPH dose, will see how her sugars do through the day. Continue 1/2 NS at 150 ml/hr. Accuchecks achs. 2. Acute metabolic encephalopathy in setting of HHS - Resolved. Plan as above. CT head negative. 3. Hypernatremia, acute - Improving. 1/2NS ordered. 4. UTI, suspect - WBC and 4+ bacteria noted in urine. Urine culture growing heavy growth of gram neg organism. Continue rocephin daily. 5. Diabetes, insulin dependent - Plan as above, resume home nph. A1c 7.1 in 09/11. 6. Depression - Continue home citalopram. 7. Candidiasis of skin in setting of elevated glucose - Fluconazole daily, will reevaluate need daily. 8. ALEJANDRO stage 1 - Improved, continue fluids. DVT Prophylaxis: Lovenox Review Statement Review Statement: I have personally discussed and reviewed the patient's visit/currently labs/imaging/decision making with Dr. Franco, my supervising attending. Greater that 50 minutes spent with patient, 50% of the time spent with this patient was devoted to counseling and coordination of care.
[2022-10-06] MEDS ORDERED: NON-FORMULARY MEDICATION (Ferrous Sulfate 325 mg (65 mg iron) tablet) PO SCH (10:15)
[2022-10-06] MEDS: SPIRIVA IH SCH (10:30)
[2022-10-06] MEDS: SYMBICORT 160-4.5 MCG INHALER IH SCH ×2 (10:30→20:48)
[2022-10-06] MEDS: CRESTOR PO SCH (10:30)
[2022-10-06] MEDS: TIMOPTIC 0.5% OPTH EACHEYE SCH ×2 (10:30→20:48)
[2022-10-06] MEDS: FERROUS SULFATE PO SCH ×2 (10:30→20:46)
[2022-10-06] MEDS: CELEXA PO SCH (10:31)
[2022-10-06] MEDS ORDERED: HUMULIN 70-30 SUBCUT SCH (21:00)
[2022-10-07] MEDS: SODIUM CHLORIDE 1,000 ML IV SCH (04:33)
[2022-10-07 05:18] LABS: BASOPHILS % (AUTO) 0.2 % (0.0-3.0); EOSINOPHILS # (AUTO) 0.1 K/ul (0.0-0.7); EOSINOPHILS % (AUTO) 0.9 % (0.0-7.0); HEMATOCRIT 34.6 % (37.0-47.0); HEMOGLOBIN 10.4 g/dl (12.0-16.0); IMMATURE GRANULOCYTE # (AUTO) 0.1 (0.0-1.0); IMMATURE GRANULOCYTE % (AUTO) 0.5 % (0.0-5.0); LYMPHOCYTES # (AUTO) 1.5 K/uL (0.60-3.4); LYMPHOCYTES % (AUTO) 10.7 (10.0-50.0); MEAN CORPUSCULAR HEMOGLOBIN 27.5 pg (27.0-31.0); MEAN CORPUSCULAR HGB CONC 30.1 (31.8-35.4); MEAN CORPUSCULAR VOLUME 91.5 fl (81.0-99.0); MONOCYTES # (AUTO) 0.4 K/uL (0.4-2.0); MONOCYTES % (AUTO) 2.7 (0-10); NEUTROPHILS # (AUTO) 11.8 K/ul (2.0-6.9); PLATELET COUNT 424 10^3/uL (140-440); RDW COEFFICIENT OF VARIATION 15.2 % (11.6-14.8); RED BLOOD COUNT 3.78 10^6/ul (4.20-5.40); WHITE BLOOD COUNT 13.84 K/ul (4.6-10.2)
[2022-10-07 05:25] LABS: ALANINE AMINOTRANSFERASE 15.1 U/L (0-35); ALBUMIN 3.01 g/dL (3.5-5.0); ALKALINE PHOSPHATASE 115.3 U/L (53-141); ASPARTATE AMINO TRANSFERASE 19.3 U/L (14-36); BILIRUBIN,TOTAL 0.36 mg/dL (0.2-1.3); BLOOD UREA NITROGEN 23.6 mg/dL (7-17); CALCIUM 8.08 mg/dL (8.4-10.2); CARBON DIOXIDE 28.2 mmol/L (22-30.0); CREATININE 1.04 mg/dL (0.60-1.30); GLUCOSE 294.7 mg/dL (74-106); POTASSIUM 3.47 mmol/L (3.5-5.1); SODIUM 141.5 mmol/L (134.5-145); TOTAL PROTEIN 6.46 g/dL (6.3-8.2)
[2022-10-07 05:43] VITALS: RESP 18
[2022-10-07] MEDS: SYMBICORT 160-4.5 MCG INHALER IH SCH (09:29)
[2022-10-07] MEDS: LOVENOX SUBCUT SCH (09:29)
[2022-10-07] MEDS: TIMOPTIC 0.5% OPTH EACHEYE SCH (09:29)
[2022-10-07] MEDS: ROCEPHIN 1 GM/50 ML D5W 1 GM/50 ML BAG IV SCH (09:29)
[2022-10-07] MEDS: SPIRIVA IH SCH (09:29)
[2022-10-07] MEDS: CELEXA PO SCH (09:30)
[2022-10-07] MEDS: HUMULIN 70-30 SUBCUT SCH (09:30)
[2022-10-07] MEDS: DIFLUCAN PO SCH (09:30)
[2022-10-07] MEDS: FERROUS SULFATE PO SCH (09:31)
[2022-10-07] MEDS: CRESTOR PO SCH (09:31)
[2022-10-07 10:13] VITALS: BP 126/55; TEMP 96.6
[2022-10-07] MEDS ORDERED: K-DUR PO ONE (10:35)
--- NOTE | 2022-10-07 10:37 | DCSUM ---
Admission Date Admission Date: 10/05/22 Discharge Date Discharge Date: 10/07/22 Admission Diagnosis Admission Diagnosis: 1. HHS with altered mental status 2. Acute metabolic encephalopathy in setting of HHS 3. Hypernatremia, acute Discharge Diagnosis Discharge Diagnosis: 1. HHS with altered mental status - Resolved. 2. Acute metabolic encephalopathy in setting of HHS - Resolved. 3. Hypernatremia, acute - Resolved. 4. UTI in setting of E coli 5. Diabetes, insulin dependent 6. Depression 7. Candidiasis of skin in setting of elevated glucose 8. ALEJANDRO stage 1, resolved Hospital Provider Hospital Provider: ED[facility] Primary Care Physician Primary Care Physician: KEELEY DURON MD Summary of History and Physical Summary of History and Physical: Patient is a 62-year-old female from home with past medical history of diabetes type 2, anemia, hypertension, chronic kidney disease, CVA who presented to the ER with elevated blood sugars. Patient was obtunded and unable to provide a full history. Patient had a recent hospitalization for hypoglycemia. Per that visit she was not checking her sugars prior to administering her insulin. In the ER she was found to have glucose over 1000. Bicarb normal. She was given 2 L of fluid. There was a delay in starting an insulin drip due to her IV being blown and the ECONOMICS ANALYST having to come out to get a line established. She was given 10 units subq during this time. White blood cell count was 14 and Procal was 0.52. Chest x-ray was negative. CT head without negative. UA was negative for nitrites or leukocytes but did have some white blood cells and 4+ bacteria. She was admitted to SCU. On my evaluation patient is oriented to person and place. She has difficulty recalling the time. She is able to answer questions otherwise appropriately but is slow to respond. She states that she has been out of her insulin for at least the last 2 to 3 days. She denies any chest pain or shortness of breath. Denies any dysuria. Hospital Course Subjective: Patient was placed on insulin drip and appropriate fluids. Her sugar came down appropriately. She was taken off the insulin drip when sugar was less than 250 and started back on her NPH. She was able to tolerate p.o. diet. Her mentation improved and she was felt to be at baseline. Glucose was reasonable on her home dose of NPH of 30 units in the morning and 20 units at night. She did not experience any lows. Sodium improved with fluids. Discussed with patient in depth her plan regarding her diabetes as she is not compliant with her NPH. She had a recent hospitalization with blood sugar in the 30s. Now she is in the hospital with blood sugar of 1100. Obviously not taking great care of herself outside of the hospital. She denies half-way placement at this time. She feels that she can care for herself. She states that she does actually have NPH solution available to her at home that she can take. She lives with her mother and she states that her brother will check on her often. She is still awaiting a Dexcom. She feels that that may help her manage her sugars. She feels ready for discharge today. Urine culture did grow E. coli for which she was treated with Rocephin. She will continue Cipro outpatient. Home health referral was made outpatient at her last follow-up. Case management did call home health on Saturday upon her admission to let them know she had been admitted. They were aware of referral but states that she did not have any qualifying home health needs at this time. Patient is at high risk for readmission. Of note patient had significant yeasty rash of groin/suprapubic area, given fluconazole while here. Will continue upon discharge. F/u with pcp in 2-3 days. Keep log of sugars at home. Appearance: Pleasant, No Apparent Distress, Alert and Other (Chronically ill appearing) HEENT: MMM and Supple CVS: No Murmur, No Rubs and No Gallop Abdomen: Soft, Non-Tender and No Distention Respiratory: No Dyspnea Extremities: No Edema Vital Signs: Most Recent Vital Signs Temperature 96.6 F L 10/07/22 10:00 Temperature Source Temporal Artery Scan 10/07/22 10:00 Temperature Source Infrared 10/05/22 11:01 Pulse Rate 112 H 10/07/22 10:00 Respiratory Rate 18 10/07/22 10:00 Blood Pressure 126/55 L 10/07/22 10:00 Blood Pressure Mean 78 10/07/22 10:00 Blood Pressure Right Arm 159/90 10/05/22 14:10 Blood Pressure Location Right Arm 10/07/22 10:00 Blood Pressure Position Sitting 10/07/22 10:00 O2 Sat by Pulse Oximetry 96 10/07/22 10:00 Oxygen Delivery Method Room Air 10/07/22 10:00 Height 5 ft 3 in 10/05/22 14:10 Weight 202 lb 6.4 oz 10/05/22 14:10 Telemetry Type Bedside Monitor 10/07/22 06:58 Telemetry Monitoring Continues 10/07/22 06:58 Telemetry Heart Rate 87 10/07/22 06:58 Telemetry SPO2 97 10/07/22 06:[address] Interval 0.10 L 10/07/22 01:00 EKG QRS Interval 0.12 H 10/07/22 06:58 EKG QT Interval 0.08 L 10/07/22 06:58 Telemetry Strip Reading SR 10/07/22 06:58 Imaging: EXAM: CT HEAD WITHOUT CONTRAST TECHNIQUE: Noncontrast CT of the head with multiple reformats. HISTORY: Altered mental status COMPARISON: 01/24/2016. FINDINGS: Ventricular size is normal. There is generalized atrophy with white matter attenuation changes likely secondary to chronic small vessel disease. Calderon-white matter interfaces are preserved with no evidence of acute infarct. No evidence of intracranial hemorrhage. No midline shift or mass effect. No ectopia. Paranasal sinuses and mastoid air cells are clear. Prosthetic globe left orbit. Normal right orbit. The calvarium is intact. IMPRESSION: 1. Atrophy and white matter attenuation changes compatible with chronic small vessel ischemia. No acute findings. EXAM: CHEST RADIOGRAPH TECHNIQUE: Single frontal chest radiograph. HISTORY: Altered mental status COMPARISON: 01/24/2016 FINDINGS: The lungs are clear. The heart size is normal. Scoliosis IMPRESSION: 1. No acute disease. Lab Results Last 24 Hours: 10/07/22 04:35 WBC 13.84 H RBC 3.78 L Hgb 10.4 L Hct 34.6 L MCV 91.5 MCH 27.5 MCHC 30.1 L RDW Coeff of Ami 15.2 H Plt Count 424 Immature Gran % (Auto) 0.5 Neut % (Auto) 85.0 H Lymph % (Auto) 10.7 [place] % (Auto) 2.7 Eos % (Auto) 0.9 Baso % (Auto) 0.2 Neut # (Auto) 11.8 H Lymph # (Auto) 1.5 [place] # (Auto) 0.4 Eos # (Auto) 0.1 Baso # (Auto) 0.0 Immature Gran # (Auto) 0.1 Sodium 141.5 Potassium 3.47 L Chloride 111.0 H Carbon Dioxide 28.2 Anion Gap 5.77 BUN 23.6 H Creatinine 1.04 D Estimated GFR (MDRD) 65.00 BUN/Creatinine Ratio 22.69 Glucose 294.7 H Calcium 8.08 L Total Bilirubin 0.36 AST 19.3 ALT 15.1 Alkaline Phosphatase 115.3 Total Protein 6.46 Albumin 3.01 L Globulin 3.45 Albumin/Globulin Ratio 0.87 Discharge Instructions Discharge Planning: Discharge Planning > 80 minutes Discussed plan of care with Dr. Grecia Duron. Discharge Medications: Medications at Discharge (Home Meds & RX) cyclobenzaprine 10 mg tablet 1 tab PO DAILY PRN Muscle spasms in back 01/24/16 rosuvastatin 40 mg tablet (Crestor) 40 mg PO QAM 01/24/16 ferrous sulfate 325 mg (65 mg iron) tablet 325 mg PO BID #60 tabs 06/26/22 citalopram 40 mg tablet (Celexa) 40 mg PO QAM 08/17/22 gabapentin 300 mg capsule 300 mg PO .BEDTIME 08/17/22 semaglutide 1 mg/dose (4 mg/3 mL) subcutaneous pen injector (Ozempic) 1 mg (0.75 mL) subcut QWEEK #3 mL 08/17/22 blood-glucose sensor (Dexcom G7 Sensor device) #1 ea 09/10/22 blood-glucose meter,continuous (Dexcom G7 Hat Designer) #1 ea 09/14/22 fluticasone fur. 100 mcg-umeclid 62.5 mcg-vilant 25 mcg inhalat.powder (Trelegy Ellipta) 1 inh inhalation QDAY #28 ea 09/18/22 timolol 0.5 % eye drops 1 drp BOTHEYES BID 09/25/22 ciprofloxacin HCl 500 mg tablet (Cipro) 500 mg PO BID UTI 5 days #10 tabs 10/07/22 fluconazole 150 mg tablet 150 mg PO DAILY #2 tabs 10/07/22 insulin human U-100 NPH-regulr 70-30 mix 100 unit/mL subcutaneous susp (Humulin 70/30 U-100 Insulin) 20 unit (0.2 mL) subcut BEDTIME #3 mL 10/07/22 insulin human U-100 NPH-regulr 70-30 mix 100 unit/mL subcutaneous susp (Humulin 70/30 U-100 Insulin) 30 unit (0.3 mL) subcut QAM #3 mL 10/07/22 Discharge Plan Discharge Discharge Orders: Discharge Patient (ONCE); Ordered 10/07/22 Ordered By: EDIN SCHNEIDER Activity Restrictions/Additional Instructions: DISCHARGE TO HOME DX: HHS, URINARY TRACT INFECTION DIET: DIABETIC PHARMACY: [facility], ANTIBIOTIC SENT IN CONTINUE NPH 30 UNITS IN AM, 20 UNITS AT NIGHT. CHECK YOUR BLOOD SUGARS BEFORE ADMINISTERING YOUR INSULIN UNTIL YOU CAN GET YOUR DEXCOM F/U WITH PCP IN 2-3 DAYS KEEP LOG OF YOUR BLOOD SUGARS COMPLETE ANTIBIOTIC ACTIVITY: TOLERATED Instructions: Hyperosmolar Hyperglycemic State (GEN) Patient Disposition: HOME SELF-CARE Prescriptions: New fluconazole 150 mg Tablet 150 mg PO DAILY Qty: 2 0RF Rx Instructions: May take one tablet in 72 hours, may repeat second dose in another 72 hours if needed Humulin 70/30 U-100 Insulin 100 unit/mL (70-30) suspension 20 unit subcut BEDTIME Qty: 3 0RF Humulin 70/30 U-100 Insulin 100 unit/mL (70-30) suspension 30 unit subcut QAM Qty: 3 0RF ciprofloxacin HCl [Cipro] 500 mg tablet 500 mg PO BID 5 Days Qty: 10 0RF Continued ferrous sulfate 325 mg (65 mg iron) tablet 325 mg PO BID Qty: 60 2RF (DME) Dexcom G7 Sensor Device See Rx Instructions .ROUTE Qty: 1 5RF Rx Instructions: As directed (DME) Dexcom G7 Hat Designer Misc See Rx Instructions .ROUTE Qty: 1 0RF Rx Instructions: As directed Trelegy Ellipta 100-62.5-25 mcg blister with device 1 inh inhalation QDAY Qty: 28 5RF cyclobenzaprine 10 MG tablet 1 tab PO DAILY PRN (Reason: Muscle spasms in back) rosuvastatin [Crestor] 40 MG tablet 40 mg PO QAM citalopram [Celexa] 40 mg tablet 40 mg PO QAM gabapentin 300 mg capsule 300 mg PO .BEDTIME Ozempic 1 mg/dose (4 mg/3 mL) pen injector 1 mg subcut QWEEK Qty: 3 2RF timolol 0.5 % drops 1 drp BOTHEYES BID Discontinued Humulin 70/30 U-100 Insulin 100 unit/mL (70-30) suspension 35 unit subcut BIDAC Rx Instructions: inject 30 units under the skin every morning and 20 units under the skin every evening Did you review [place] DIE CASTING MACHINE MAINTAINER for ALL controlled substances?: Not Applicable Discussed opioids are addictive and Narcan is available by prescription or from pharmacy.: No
[2022-10-07] MEDS ORDERED: K-DUR ONE (11:04)
== END 2022-10-07 13:00 | disposition home or self-care (01) | DRG 637 ==
LOC: ED 10:49 → SCU 12:23
PROVIDERS: ADMIT Hospitalist; ATTEND Physician Assistant
DX: E87.0 Hyperosmolality and hypernatremia; E87.8 Other disorders of electrolyte and fluid balance, not elsewhere classified; N18.31 Chronic kidney disease, stage 3a; D64.9 Anemia, unspecified; E11.00 Type 2 diabetes mellitus with hyperosmolarity without nonketotic hyperglycemic-hyperosmolar coma (NKHHC); G93.41 Metabolic encephalopathy; Z79.4 Long term (current) use of insulin; I10 Essential (primary) hypertension; F32.A Depression, unspecified; E11.628 Type 2 diabetes mellitus with other skin complications; N39.0 Urinary tract infection, site not specified